=== PATIENT | female | born 1950 | race Asian ===

== ENCOUNTER → 2017-11-13 07:59 | Outpatient (CLI) | payer MEDICARE, OTHER, SELFPAY ==
--- NOTE | 2017-11-13 | DI.US.S_ITS ---
PROCEDURE: US PELVIC COMPLETE INDICATIONS: PAIN TECHNIQUE: Real-time scanning was performed of the pelvic organs, with image documentation. Additional endovaginal scanning was necessary due to incomplete visualization of the adnexal and endometrial structures by transabdominal scanning. COMPARISON: [facility], US, US ABDOMEN COMPLETE, 11/13/2017, 8:05. FINDINGS: Transabdominal scanning: No pathologic free abdominal or pelvic fluid. On the accompanying abdominal ultrasound, the kidneys demonstrate a normal appearance. Endovaginal scanning: Uterus: Absent. Ovaries: Neither ovary can be seen. IMPRESSION: Status post hysterectomy. Neither ovary is seen on this study. Dictated by: Parveen Fontaine M.D. on 11/13/2017 at 9:39 Approved by: Parveen Fontaine M.D. on 11/13/2017 at 9:40
--- NOTE | 2017-11-13 | DI.US.S_ITS ---
PROCEDURE: US ABDOMEN COMPLETE INDICATIONS: ABDOMINAL PAIN TECHNIQUE: Real-time scanning was performed of the abdominal and retroperitoneal organs, with image documentation. COMPARISON: [facility], US, US PELVIC COMPLETE, 11/13/2017, 8:18. FINDINGS: Liver: The liver demonstrates normal size. The liver demonstrates generalized mildly increased echogenicity. This decreases ultrasound sensitivity for detection of hepatic masses. Gallbladder: No findings of gallstones or sludge are seen. The gallbladder wall is not thickened, measuring 3 mm or less. No specific pericholecystic fluid is seen. The sonographic Hunt sign is negative. Biliary ducts: Intrahepatic bile ducts are non-dilated. Extrahepatic bile duct caliber measures 6 mm. Normal is 6-7 mm or less in diameter, or 10 mm or less post-cholecystectomy. Pancreas: Visualized portions of the pancreas are sonographically normal. Spleen: Spleen is normal in size and homogeneous in echotexture. Kidneys: Kidneys are normal in size and echotexture. Right kidney measures 9.9 cm long; left kidney measures 9.4 cm long. No hydronephrosis or nephrolithiasis. No solid masses. The renal cortex measures within normal limits for thickness. Aorta: Visualized aorta is normal in caliber at less than 3 cm. Iliacs: Proximal common iliac arteries are normal in caliber at less than 2.5 cm. IVC: Intrahepatic inferior vena cava is patent. Miscellaneous: No free abdominal fluid. IMPRESSION: The gallbladder demonstrates a normal sonographic appearance. No biliary dilatation is seen. The liver demonstrates increased echogenicity. This finding is nonspecific, yet it is most commonly attributed to fatty infiltration. Dictated by: Parveen Fontaine M.D. on 11/13/2017 at 9:38 Approved by: Parveen Fontaine M.D. on 11/13/2017 at 9:39
== END ==
PROVIDERS: Family Provider Family Medicine; PCP Family Medicine; Visit Provider Family Medicine
DX: R10.9 Unspecified abdominal pain (principal); R10.2 Pelvic and perineal pain
CPT/HCPCS: 76700; 76830; 76856

== ENCOUNTER → 2017-11-21 11:20 | Outpatient (CLI) | payer MEDICARE, OTHER, SELFPAY ==
--- NOTE | 2017-11-21 | DI.CT.S_ITS ---
PROCEDURE: CT ABDOMEN PELVIS W CON INDICATIONS: DIFFUSE ABDOMINAL PAIN TECHNIQUE: After the administration of oral and intravenous contrast, 5 mm thick sections acquired from the diaphragms to the symphysis. 5 mm thick coronal and sagittal reformats were performed. For radiation dose reduction, the following was used: automated exposure control, adjustment of mA and/or kV according to patient size. COMPARISON: [facility], , CT ABDOMEN W/WO CONTRAST, 08/12/2003, 7:59. FINDINGS: Image quality: Excellent. ABDOMEN: Lung bases: Lung bases are clear. Heart size is normal. Solid organs: Liver is enlarged, and demonstrates normal enhancement. Diffusely decreased hepatic density is present. Gallbladder is within normal limits. Biliary system is non-dilated. Pancreas enhances normally. Spleen is normal in size and enhancement. No adrenal nodules. Kidneys are normal in size and enhancement, without hydronephrosis. Peritoneum and bowel: Stomach, small bowel, and colon loops are normal in caliber and wall thickness. No free fluid or air. Appendix not seen. No evidence of appendicitis. Nodes and vessels: No retroperitoneal or mesenteric adenopathy. Aorta and inferior vena cava are normal in caliber. Miscellaneous: No ventral hernias. PELVIS: Genitourinary: Bladder wall thickness is normal. Miscellaneous: No inguinal hernias or adenopathy. Bones: No suspicious bony lesions. No vertebral body compression fractures. IMPRESSION: 1. No acute process. 2. Hepatic steatosis. 3. Appendix not seen. No evidence of appendicitis. Dictated by: Belinda Tam M.D. on 11/21/2017 at 13:18 Approved by: Belinda Tam M.D. on 11/21/2017 at 13:20
== END ==
PROVIDERS: PCP Family Medicine; Visit Provider Family Medicine
DX: R10.84 Generalized abdominal pain (principal); K76.0 Fatty (change of) liver, not elsewhere classified
CPT/HCPCS: 74177

== ENCOUNTER → 2017-11-27 11:37 | Outpatient (CLI) | payer MEDICARE, OTHER, SELFPAY ==
--- NOTE | 2017-11-27 | DI.RAD.S_ITS ---
PROCEDURE: XR FOOT RT MIN 3V INDICATIONS: RIGHT FOREFOOT TRAUMA AND PAIN TECHNIQUE: AP, lateral, and oblique views of the foot were acquired. COMPARISON: [facility], , FOOT 3V RIGHT, 11/22/2015, 14:51. FINDINGS: Bones: There is increased diaphyseal sclerosis of these can through fifth metatarsals with areas of transverse sclerosis of the mid-diaphyses. Soft tissues: No tibiotalar joint effusion. Achilles tendon appears normal. IMPRESSION: Increased diaphyseal sclerosis of the right second through fifth metatarsals, which may represent developing stress injuries/fracture. Dictated by: Familia Desai M.D. on 11/27/2017 at 12:26 Approved by: Familia Desai M.D. on 11/27/2017 at 12:29
== END ==
PROVIDERS: PCP Family Medicine; Visit Provider Family Medicine
DX: M79.671 Pain in right foot (principal)
CPT/HCPCS: 73630

== ENCOUNTER → 2018-04-01 12:07 | Outpatient (CLI) | payer MEDICARE, OTHER, SELFPAY ==
--- NOTE | 2018-04-01 | DI.RAD.S_ITS ---
PROCEDURE: XR CHEST 2V INDICATIONS: COUGH/FATIGUE TECHNIQUE: 2 views of the chest were acquired. COMPARISON: None. FINDINGS: Surgical changes and devices: None. Lungs and pleura: No pleural effusions or pneumothorax. Lungs are clear. Mediastinum: Mediastinal contours are normal. Heart size is normal. Bones and chest wall: No suspicious bony abnormalities. Soft tissues appear unremarkable. IMPRESSION: Normal for age, source of current symptoms is not seen. Dictated by: Eliseo Reza M.D. on 04/01/2018 at 13:24 Approved by: Eliseo Reza M.D. on 04/01/2018 at 13:25
== END ==
PROVIDERS: PCP Family Medicine; Visit Provider Nurse Practitioner Family
DX: R05 Cough (principal); R53.83 Other fatigue
CPT/HCPCS: 71046

== ENCOUNTER → 2019-05-02 10:44 | Outpatient (CLI) | payer MEDICARE, OTHER, SELFPAY ==
[2019-05-02 12:36] LABS: TSH w/ Reflex to FT4 3.08 uIU/mL (0.47-4.68)
== END ==
PROVIDERS: PCP Student in an Organized Health Care Education/Training Program; Visit Provider Student in an Organized Health Care Education/Training Program
DX: E03.9 Hypothyroidism, unspecified (principal)
CPT/HCPCS: 36415; 84443

== ENCOUNTER 2019-05-29 13:45 | Emergency (ER) | payer MEDICARE, OTHER, SELFPAY ==
[2019-05-29 13:55] VITALS: BP 134/89; PULSE 94; RESP 16; TEMP 35.8; O2SAT 99; BMI 28.9
--- NOTE | 2019-05-29 16:04 | ED_ITS ---
HPI - Ear Problem <CHUY Pennington - Last Filed: 05/29/19 21:44> General Chief complaint: Ear Stated complaint: terrible pain in her left side of head x2 days Time Seen by Provider: 05/29/19 15:21 Source: patient Mode of arrival: Ambulatory History of Present Illness HPI Narrative: 68-year-old female presents emergency department complaining of left ear pain for the past 2 days. She states it is a 7/10 dull aching pain. She denies any recent illness, recent flights, or trauma to the ear. She states she thinks it may be due to her throat as she does state it was a bit sore today. She has not had her ears irrigated in the past. Patient denies any recent swimming. She denies fevers, chills, nausea, vomiting, diarrhea, chest pain, shortness of breath, cough, nasal congestion, other concerns. Related Data Home Medications Medication Instructions Recorded Confirmed Hormonal Patch TRANSDERMAL 02/24/19 esomeprazole magnesium 20 mg 20 mg PO DAILY 02/24/19 02/24/19 capsule,delayed release levothyroxine PO 02/24/19 02/24/19 citalopram 20 mg PO DAILY 05/29/19 05/29/19 Previous Rx's Medication Instructions Recorded oxycodone-acetaminophen 5 mg-325 1 tab PO Q4-6H PRN #30 tab 02/24/19 mg tablet fluticasone propionate [Flonase 1 spray NASAL BID 14 Days #15.8 ml 05/29/19 Allergy Relief] ofloxacin 10 drop EAR-LEFT DAILY 7 Days #5 ml 05/29/19 Allergies Allergy/AdvReac Type Severity Reaction Status Date / Time No Known Drug Allergies Allergy Verified 05/29/19 13:55 Review of Systems <CHUY Pennington - Last Filed: 05/29/19 21:44> Review of Systems Narrative: REVIEW OF SYSTEMS: GENERAL: Denies fever or chills. HENT: No head trauma. Complains of left ear pain, see HPI. EYES: Denies eye irritation or vision changes. NECK/LYMPHATIC: No lymphadenopathy. CARDIOVASCULAR: No chest pain. RESPIRATORY: No shortness of breath. INTEGUMENTARY: No rash. NEURO: No confusion. Patient History <CHUY Pennington - Last Filed: 05/29/19 21:44> Medical History No significant medical problems (Acute) Social History Smoking Status: Never smoker Smoking Status: Never smoker Exam <CHUY Pennington - Last Filed: 05/29/19 21:44> Initial Vital Signs Initial Vital Signs: Vital Signs Temperature 96.4 F L 05/29/19 13:55 Pulse Rate 94 H 05/29/19 13:55 Respiratory Rate 16 05/29/19 13:55 Blood Pressure 134/89 05/29/19 13:55 Pulse Oximetry 99 05/29/19 13:55 PHYSICAL EXAMINATION: GENERAL: Alert, and cooperative. Answers questions promptly and appropriately. Vital signs noted. HENT: Normocephalic, atraumatic. Hearing intact. Oral mucosa is pink and moist. Face features symmetrical. Right ear with cerumen impaction. Left ear with cerumen impaction, TM not visible until after irrigation, TM intact with crisp light reflex and clear effusion noted, surrounding ear canal with erythema. EYES: Conjunctiva pink, sclera white, no periorbital swelling. No discharge. CARDIOVASCULAR: Regular rate. RESPIRATORY: Normal respiratory rate, trachea midline, airway patent. No stridor, nasal flaring or accessory muscle use. . MUSCULOSKELETAL: Normal gait and coordination. Equal tone and mass bilaterally. SKIN: Warm, dry, soft, appropriate color for ethnicity. NEURO: Alert and Oriented X 3. Good coordination. PSYCH: Appropriate affect and mood. <Anshul Lutz MD - Last Filed: 06/02/19 08:07> Initial Vital Signs Initial Vital Signs: Vital Signs Temperature 96.4 F L 05/29/19 13:55 Pulse Rate 94 H 05/29/19 13:55 Respiratory Rate 16 05/29/19 13:55 Blood Pressure 134/89 05/29/19 13:55 Pulse Oximetry 99 05/29/19 13:55 Course <CHUY Pennington - Last Filed: 05/29/19 21:44> Course Course Narrative: Patient's ear was irrigated, TM was visualized. Vital Signs Vital signs: Vital Signs - 8 hr 05/29/19 13:55 05/29/19 16:50 Temperature 96.4 F L Pulse Rate 94 H 79 Respiratory Rate 16 Blood Pressure 134/89 127/75 Pulse Oximetry 99 100 <Anshul Lutz MD - Last Filed: 06/02/19 08:07> Vital Signs Vital signs: Vital Signs - 8 hr 05/29/19 13:55 05/29/19 16:50 Temperature 96.4 F L Pulse Rate 94 H 79 Respiratory Rate 16 Blood Pressure 134/89 127/75 Pulse Oximetry 99 100 Medical Decision Making <CHUY Pennington - Last Filed: 05/29/19 21:44> Medical Records Medical records reviewed: Yes I reviewed the patient's medical records. Lab Data Lab results reviewed: Yes I reviewed the patient's lab results. MDM Narrative Medical decision making narrative: 60-year-old female presents emergency department complaining of left ear pain. After irrigation and removal of cerumen impaction, there was fluid visualized behind TM and surrounding ear canal was erythematous. I suspect otitis externa and otitis effusion. Less likely acute otitis media with bacterial infection due to lack of opacity, bulging, or erythema of tympanic membrane. Patient was encouraged to use Flonase intranasally morning and night for the next 2 weeks to help with otitis effusion. She was given ofloxacin drops for otitis externa. Patient was encouraged to follow up with her primary care provider in 1-2 weeks for further evaluation if symptoms continue. Patient agreed with plan of care verbalized understanding. Less concerns for tumor or cranial bleed due to normal neurological examination, and otitis effusion and erythematous ear canal noted on examination. Discharge Plan Departure Patient Disposition: Home Clinical Impression: Acute otitis media with effusion Otitis externa Qualifiers: Otitis externa type: unspecified type Chronicity: acute Laterality: left Q ualified Code(s): H60.502 - Unspecified acute noninfective otitis externa, left ear Cerumen impaction Qualifiers: Laterality: left Qualified Code(s): H61.22 - Impacted cerumen, left ear Discharge Date/Time: 05/29/19 16:51 Instructions: Cerumen Impaction, DI for Otitis Externa Activity Restrictions/Additional Instructions: Thank you for entrusting me with your care today. As discussed, your ear pain is most likely caused by non infectious fluid behind your ear as well as an external ear infection. You have been given ear drops and a nasal spray, [facility] [place]. Please use these as directed. Follow up with your primary care provider in 1-2 weeks for further evaluation if symptoms continue. Return to the emergency department for new or worsening symptoms such as vision changes, difficulty speaking, syncope, chest pain, shortness of breath, high fevers, or other concerns. Prescriptions: New ofloxacin 0.3 % drops 10 drop EAR-LEFT DAILY 7 Days Qty: 5 RF: 0 fluticasone propionate [Flonase Allergy Relief] 50 mcg/actuation spray,suspension 1 spray NASAL BID 14 Days Qty: 15.8 RF: 0 No Action esomeprazole magnesium [Nexium 24HR] 20 mg capsule,delayed release(DR/EC) 20 mg PO DAILY RF: 0 levothyroxine PO RF: 0 Hormonal Patch transdermal RF: 0 oxycodone-acetaminophen [Percocet] 5-325 mg tablet 1 tab PO Q4-6H PRN (Reason: pain) Qty: 30 RF: 0 citalopram 20 mg tablet 20 mg PO DAILY RF: 0 Referrals: Vita Porras MD [Primary Care Provider] -
[2019-05-29 16:50] VITALS: BP 127/75; PULSE 79; O2SAT 100
== END 2019-05-29 16:51 | disposition home or self-care (01) ==
PROVIDERS: Emergency Provider Nurse Practitioner; PCP Student in an Organized Health Care Education/Training Program
DX: H65.192 Other acute nonsuppurative otitis media, left ear (principal); H60.502 Unspecified acute noninfective otitis externa, left ear; H61.22 Impacted cerumen, left ear
CPT/HCPCS: 69209; 99283

== ENCOUNTER → 2019-07-16 09:24 | Outpatient (CLI) | payer MEDICARE, OTHER, SELFPAY ==
[2019-07-16 10:06] LABS: Add Manual Diff / Slide Review NO; Basophils Absolute Auto 0 /uL (0-100); Basophils Percent Auto 0.7 % (0-2); Eosinophils Absolute Auto 200 /uL (0-450); Eosinophils Percent Auto 3.4 % (2-4); Hematocrit 39.2 % (36-46); Lymphocytes Absolute Auto 2100 /uL (1100-4500); Lymphocytes Percent Auto 32.8 % (25-40); Mean Corpuscular HGB Conc 33.3 % (30-36); Mean Corpuscular Hemoglobin 27.6 PG (26-34); Mean Corpuscular Volume 83.1 fL (80-100); Monocytes Absolute Auto 300 /uL (0-900); Neutrophils Absolute Auto 3700 /uL (1500-7000); Neutrophils Percent Auto 58.1 % (50-75); Platelet Count 227 X10^3/uL (150-400); Red Blood Cell Count 4.71 X10^6/uL (4.0-5.2); Red Cell Distribution Width 15.3 % (11.6-14.8); White Blood Cell Count 6.4 X10^3/uL (4.5-11.0)
[2019-07-16 10:54] LABS: Alanine Aminotransferase 21 IU/L (<35); Albumin 4.1 g/dL (3.5-5.0); Albumin Globulin Ratio 1.3 (1.0-2.8); Alkaline Phosphatase 90 U/L (38-126); Aspartate Aminotransferase 21 IU/L (14-36); BUN Creatinine Ratio 16.2 (6-22); Bilirubin Total 0.3 mg/dL (0.2-1.3); Blood Urea Nitrogen 11 mg/dL (7-17); Calcium 9.6 mg/dL (8.4-10.2); Carbon Dioxide 25 mmol/L (22-32); Chloride 105 mmol/L (98-107); Cholesterol 234 mg/dL (140-199); Estimated Glomerular Filt Rate > 60.0 mL/min (>60); Globulin 3.2 g/dL (1.7-4.1); Glucose 158 mg/dL (80-110); HDL Cholesterol 45 mg/dL (40-60); HEMOLYSIS < 15 (0-50); LDL Cholesterol Calculated 145 mg/dL (<100); Potassium 4.4 mmol/L (3.4-5.1); Sodium 138 mmol/L (137-145); Total Protein 7.3 g/dL (6.3-8.2); Triglycerides 222 mg/dL (35-150)
[2019-07-16 11:13] LABS: Free T4, Direct Thyroxine 1.38 ng/dL (0.78-2.19)
[2019-07-16 11:27] LABS: Thyroid Stimulating Hormone 3.52 uIU/mL (0.47-4.68)
== END ==
PROVIDERS: PCP Internal Medicine; Referring Provider Internal Medicine; Visit Provider Internal Medicine
DX: E03.9 Hypothyroidism, unspecified (principal); E78.2 Mixed hyperlipidemia; F41.9 Anxiety disorder, unspecified
CPT/HCPCS: 36415; 80053; 80061; 84439; 84443; 85025

== ENCOUNTER 2020-05-05 09:52 | Emergency (ER) | payer MEDICARE, OTHER, SELFPAY ==
[2020-05-05 10:06] VITALS: BP 146/88; PULSE 85; RESP 12; TEMP 36.9; O2SAT 98; BMI 28.7
--- NOTE | 2020-05-05 10:35 | DI.RAD.S_ITS ---
PROCEDURE: XR KNEE LT 3V INDICATIONS: pain sp glf TECHNIQUE: 3 views of the knee were acquired. COMPARISON: None. FINDINGS: Bones: No fractures or dislocations. There is mild osteophytosis. No suspicious bony lesions. Soft tissues: There is a small joint effusion. No suspicious soft tissue calcifications. IMPRESSION: 1. No fracture or dislocation. Dictated by: Gilbert Marie M.D. on 05/05/2020 at 11:35 Approved by: Gilbert Marie M.D. on 05/05/2020 at 11:38
--- NOTE | 2020-05-05 10:35 | DI.RAD.S_ITS ---
PROCEDURE: XR SHOULDER LT MIN 2V INDICATIONS: pain sp glf TECHNIQUE: 3 views of the shoulder were acquired. COMPARISON: [facility] [place], [place], XR SHOULDER MIN 2VW RT, 07/24/2016, 12:12. FINDINGS: Bones: No fractures. There is mild superior subluxation of the distal clavicle at the left AC joint. There is moderate glenohumeral joint degeneration secondary to osteoarthritis. No suspicious bony lesions. Visualized ribs appear intact. Soft tissues: No suspicious soft tissue calcifications. IMPRESSION: 1. Grade 2 AC sprain. 2. Moderate osteoarthritis. Dictated by: Leeanne Villalta M.D. on 05/05/2020 at 11:33 Approved by: Leeanne Villalta M.D. on 05/05/2020 at 11:35
--- NOTE | 2020-05-05 10:35 | DI.CT.S_ITS ---
PROCEDURE: CT CERVICAL SPINE WO CON INDICATIONS: glf hit face, nose lac TECHNIQUE: Noncontrast 3 mm thick sections acquired from the skull base to the T4 level. Sagittal and coronal reformats were then constructed. For radiation dose reduction, the following was used: automated exposure control, adjustment of mA and/or kV according to patient size. COMPARISON: [facility] [place], [place], SPINE CERVICAL COMP W/ FL/EX, 07/24/2016, 12:01. FINDINGS: Image quality: Excellent. Bones: No fractures or dislocations. There is degenerative disc disease, [id number] at C4-C5, C5-C6 and C6-C7, causing [id number] central canal stenosis. [id number] bilateral facet arthropathy scattered in cervical spine. Visualized superior ribs are intact. Soft tissues: Prevertebral soft tissues are normal in thickness. No paravertebral hematomas. No apical pneumothoraces. IMPRESSION: 1. No acute cervical spine fracture. 2. Degenerative changes as described. Dictated by: Leeanne Villalta M.D. on 05/05/2020 at 11:13 Approved by: Leeanne Villalta M.D. on 05/05/2020 at 11:17
--- NOTE | 2020-05-05 10:35 | DI.CT.S_ITS ---
PROCEDURE: CT HEAD/BRAIN WO CON INDICATIONS: glf, headache dizzy TECHNIQUE: Noncontrast 4.5 mm thick angled axial sections acquired from the foramen magnum to the vertex, with coronal and sagittal reformats. For radiation dose reduction, the following was used: automated exposure control, adjustment of mA and/or kV according to patient size. COMPARISON: [facility], CT, HEAD WITHOUT CONTRAST, 10/29/2012, 9:54. [facility], CT, CT FACIAL BONES WO CON, 05/05/2020, 10:48. [facility], CT, HEAD WITHOUT CONTRAST, 10/13/2014, 10:29. FINDINGS: Image quality: Excellent. CSF spaces: Basal cisterns are patent. No extra-axial fluid collections. Ventricles are normal in size and shape. Brain: No intracranial hemorrhage, mass, or mass effect. Parkinson-white matter interface appears preserved. Skull and face: Calvarium appears intact. The visualized facial bones demonstrate mildly depressed fractures of the nasal bones. Sinuses: Visualized sinuses and mastoids are clear. IMPRESSION: 1. No acute intracranial abnormality. 2. Mildly displaced nasal bone fractures partially visualized. Recommend correlation with concurrent CT of the facial bones. Dictated by: Gilbert Marie M.D. on 05/05/2020 at 11:07 Approved by: Gilbert Marie M.D. on 05/05/2020 at 11:16
--- NOTE | 2020-05-05 10:35 | DI.CT.S_ITS ---
PROCEDURE: CT FACIAL BONES WO CON INDICATIONS: Pain status post ground level fall. TECHNIQUE: Noncontrast 2.5 mm thick axial images acquired from the mandible through the frontal sinuses, with coronal and sagittal reformatting. For radiation dose reduction, the following was used: automated exposure control, adjustment of mA and/or kV according to patient size. COMPARISON: None. FINDINGS: Image quality: Excellent. Bones and teeth: There are mildly displaced fractures of the nasal bones bilaterally with minimal depression anteriorly. There is associated overlying soft tissue swelling. Orbital santamaria are intact. Sinus santamaria show no fracture or deformity. Visualized portions of the mandible demonstrate no fractures or subluxation. Zygomatic arches are intact. Pterygoid plates are intact. Visualized portions of the skull base and auditory canals are intact. Sinuses: Paranasal sinuses are aerated, without fluid levels. There is a sinus retention cyst or mucosal polyp in the inferior left maxillary sinus. Mastoid air cells are aerated. Soft tissues: There is mild soft tissue swelling overlying the nasal bones. There is also mild medial periorbital soft tissue swelling bilaterally. The globes are intact. No intraorbital fluid collections. Vascular: Visualized vascular structures appear normal in the absence of contrast. Bony vascular foramina and canals are intact. IMPRESSION: 1. Mildly displaced fractures of the nasal bones with minimal depression anteriorly. Dictated by: Gilbert Marie M.D. on 05/05/2020 at 11:16 Approved by: Gilbert Marie M.D. on 05/05/2020 at 11:28
--- NOTE | 2020-05-05 10:40 | ED_ITS ---
HPI - Fall <JOANNA Patterson-BC - Last Filed: 05/05/20 13:49> General Chief Complaint: Fall Stated Complaint: glf 2xdays ago Time Seen by Provider: 05/05/20 10:15 Source: patient Mode of arrival: Ambulatory Limitations: no limitations History of Present Illness HPI Narrative: The patient is a 69-year-old female former smoker with history of hypothyroidism and sciatica who presents with a chief complaint of pain after a fall. She fell off of a chair while reaching up to get coffee 2 days ago. She states that she fell, landed on her left knee, shoulder, and then hit her head. Since then, she complains of dizziness, lightheadedness, and headache. She states that she is taking Aleve and ibuprofen for pain. She states that her neck hurts excruciatingly. Denies any new numbness or tingling or incontinence. She has not followed up with primary care provider. She does not take any blood thinners. She states that she hit her face on the chair, had a very bloody nose has a laceration to her nose. She also notes that she has a black eye on her right side. Given that the patient is over 65 years old and presents with suspected injury after a fall, modified trauma activated upon arrival. Related Data Home Medications Medication Instructions Recorded Confirmed esomeprazole magnesium 20 mg 20 mg PO DAILY 02/24/19 02/25/20 capsule,delayed release levothyroxine 50 mcg tablet 50 mcg PO DAILY tab 07/10/19 02/25/20 Previous Rx's Medication Instructions Recorded citalopram 20 mg tablet 40 mg PO DAILY #60 tab 07/10/19 cephalexin 500 mg PO TID #30 cap 05/05/20 cyclobenzaprine 10 mg PO TID PRN #10 tab 05/05/20 hydrocodone-acetaminophen [[place]] 1 tab PO Q4-6H PRN #7 tab 05/05/20 Allergies Allergy/AdvReac Type Severity Reaction Status Date / Time No Known Drug Allergies Allergy Verified 05/05/20 10:10 Review of Systems <MARCOS PattersonBC - Last Filed: 05/05/20 13:49> Review of Systems Narrative: GENERAL: Denies chills, fatigue, malaise, fever, sweats. HEENT: See HPI RESPIRATORY: Denies dyspnea, cough, wheezing, hemoptysis, sputum. CARDIOVASCULAR: Denies chest pain, palpitations, orthopnea, edema, GASTROINTESTINAL: Denies nausea, vomiting, abdominal pain, diarrhea, constipation, melena. : Denies dysuria, frequency, incontinence, hematuria, urinary retention. MUSCULOSKELETAL: See HPI SKIN: Denies rash, skin lesions, or other NEUROLOGIC: See HPI PSYCHIATRIC: No concerning psychosocial issues. 12 point review of systems is negative except for those stated above Patient History <STACEY Patterson - Last Filed: 05/05/20 13:49> Medical History (Updated 05/05/20 @ 12:48 by STACEY Patterson) Acquired hypothyroidism Anxiety Deviated septum Hyperglycemia (~07/2019) Irritable bowel syndrome Mixed hyperlipidemia Surgical History S/P appendectomy S/P hysterectomy S/P sinus surgery Social History Smoking Status: Former smoker Smoking Status: Former smoker alcohol intake frequency: a few times a month Alcohol type: wine Substance Use Type: does not use Exam <STACEY Patterson - Last Filed: 05/05/20 13:49> Narrative Exam Narrative: GENERAL: This is a well-nourished, well-developed patient, no acute distress HEAD: Atraumatic. Normocephalic. No temporal or scalp tenderness. EYES: Pupils equal round and reactive. Extraocular motions intact. No scleral icterus. No injection or drainage. Skin exam as noted ENT: Nose without bleeding, purulent drainage or septal hematoma. Throat without erythema, tonsillar hypertrophy or exudate. Uvula midline. Airway patent. NECK: Trachea midline. No JVD or lymphadenopathy. Supple, nontender, no meni ngeal signs. CARDIOVASCULAR: Regular rate and rhythm without murmurs, gallops, or rubs. RESPIRATORY: Clear to auscultation. Breath sounds equal bilaterally. No wheezes, rales, or rhonchi. GASTROINTESTINAL: Abdomen soft, non-tender, nondistended. No hepato- splenomegaly, or palpable masses. No guarding. EXTREMITIES: No clubbing, cyanosis, or edema. No joint tenderness, effusion, or edema noted. BACK: Midline C-spine pain to palpation. T and L-spine are without deformity or crepitance. No palpable step-offs or deformities NEURO: AOx3. SKIN: 1 cm irregular healing laceration noted on nasal bridge. Periorbital ecchymosis noted on right side. Initial Vital Signs Initial Vital Signs: Vital Signs Temperature 98.5 F 05/05/20 10:06 Pulse Rate 85 05/05/20 10:06 Respiratory Rate 12 05/05/20 10:06 Blood Pressure 146/88 H 05/05/20 10:06 Pulse Oximetry 98 05/05/20 10:06 <Radha Ennis DO - Last Filed: 05/05/20 18:12> Initial Vital Signs Initial Vital Signs: Vital Signs Temperature 98.5 F 05/05/20 10:06 Pulse Rate 85 05/05/20 10:06 Respiratory Rate 12 05/05/20 10:06 Blood Pressure 146/88 H 05/05/20 10:06 Pulse Oximetry 98 05/05/20 10:06 Procedures <STACEY Patterson - Last Filed: 05/05/20 13:49> Orthopedic Splinting/Casting Injury #1: Side: left Upper Extremity Injury Location: shoulder Upper Extremity Immobilizer: sling/shoulder immobilizer Post splinting neuro exam: intact Post splinting vascular exam: intact Placed by: Nursing Scores <STACEY Patterson - Last Filed: 05/05/20 13:49> [place] CT Head Rule Age <16 years old: No Patient on blood thinners: No Seizure after injury: No Exclusion: Patient NOT Excluded, Proceed to next steps GCS < 15 at 2 hr post trauma: No Suspected open or depressed skull fracture: No Any sign of basilar skull fracture (hemotympanum, raccoon eyes, Estrada's sign, CSF sarthak-/rhinorrhea): Yes Two or more episodes of vomiting: No Age greater or equal to 65 years: Yes Retrograde amnesia to the event greater or equal to 30 min: No Dangerous Mechanism (pedestrian vs. mv, occupant ejected from mv, fall from >3 ft or > 5 stairs): No Recommendation: Consider CT. The [place] Head CT Rule cannot rule out need for Imaging. GCS Tre coma scale eye opening: Spontaneous Tre coma scale verbal response: Orientated [place] coma scale motor response: Obey commands [place] coma scale total score: 15 Nexus Score for C-Spine Focal Neurologic deficit present: No Midline spinal tenderness present: Yes Altered level of conciousness present: No Intoxication present: No Distracting Injury Present: No Nexus Criteria for C-spine: 1 Course <STACEY Patterson - Last Filed: 05/05/20 13:49> Orders Ordered: ED Orders 05/05/20 10:35 CT cervical spine wo con Stat CT facial bones wo con Stat CT head/brain wo con Stat XR knee LT 3V Stat XR shoulder LT min 2V Stat Discontinued Medications Diphtheria/Tetanus/Acell Pertussis (Tet,Diph,Pertuss(Acell),Vac/Pf 0.5 Ml Syringe) 0.5 ml IM .ONCE ONE Stop: 05/05/20 10:38 Last Admin: 05/05/20 11:08 Dose: 0.5 ml Documented by: LINDA Vital Signs Vital signs: Vital Signs - 8 hr 05/05/20 12:58 Pulse Rate 73 Respiratory Rate 16 Blood Pressure 151/72 H Pulse Oximetry 99 <Radha Ennis DO - Last Filed: 05/05/20 18:12> Orders Ordered: ED Orders 05/05/20 10:35 CT cervical spine wo con Stat CT facial bones wo con Stat CT head/brain wo con Stat XR knee LT 3V Stat XR shoulder LT min 2V Stat Discontinued Medications Diphtheria/Tetanus/Acell Pertussis (Tet,Diph,Pertuss(Acell),Vac/Pf 0.5 Ml Syringe) 0.5 ml IM .ONCE ONE Stop: 05/05/20 10:38 Last Admin: 05/05/20 11:08 Dose: 0.5 ml Documented by: LINDA Vital Signs Vital signs: Vital Signs - 8 hr 05/05/20 12:58 Pulse Rate 73 Respiratory Rate 16 Blood Pressure 151/72 H Pulse Oximetry 99 MDM - Fall <STACEY Patterson - Last Filed: 05/05/20 13:49> Imaging Data Extremity x-ray #1: Radiologist's Impression: [address] [place] [id number] ReportSigned Patient: Carolina Jung GMR#: [id number]: 1950cct:[id number]/Sex: 69 / FDate of Service: 05/05/20Loc: EDAccession Number: [id number] Procedure: XR shoulder LT min 2V Ordering Provider: Aaliyah De La Rosa-DARRICK PROCEDURE: XR SHOULDER LT MIN 2V INDICATIONS: pain sp glf TECHNIQUE: 3 views of the shoulder were acquired. COMPARISON: [facility], CR, XR SHOULDER MIN 2VW RT, 07/24/2016, 12:12. FINDINGS: Bones: No fractures. There is mild superior subluxation of the distal clavicle at the left AC joint. There is moderate glenohumeral joint degeneration secondary to osteoarthritis. No suspicious bony lesions. Visualized ribs appear intact. Soft tissues: No suspicious soft tissue calcifications. IMPRESSION: 1. Grade 2 AC sprain. 2. Moderate osteoarthritis. Dictated by: Leeanne Villalta M.D. on 05/05/2020 at 11:33 Approved by: Leeanne Villalta M.D. on 05/05/2020 at 11:35 Extremity x-ray #2: Radiologist's Impression: [address] [place] [id number] ReportSigned Patient: Carolina Jung GMR#: [id number]: 1950t:[id number]/Sex: 69 / FDate of Service: 05/05/20Loc: EDAccession Number: [id number] Procedure: XR knee LT 3V Ordering Provider: Aaliyah De La Rosa PROCEDURE: XR KNEE LT 3V INDICATIONS: pain sp glf TECHNIQUE: 3 views of the knee were acquired. COMPARISON: None. FINDINGS: Bones: No fractures or dislocations. There is mild osteophytosis. No suspicious bony lesions. Soft tissues: There is a small joint effusion. No suspicious soft tissue calcifications. IMPRESSION: 1. No fracture or dislocation. Dictated by: Gilbert Marie M.D. on 05/05/2020 at 11:35 Approved by: Gilbert Marie M.D. on 05/05/2020 at 11:38 CT scan - head: Radiologist's Impression: [address] [place] [id number] ReportSigned Patient: Carolina Jung GMR#: [id number]: [facility]:[id number]/Sex: 69 / FDate of Service: 05/05/20Loc: EDAccession Number: [id number] Procedure: XR knee LT 3V Ordering Provider: Aaliyah De La Rosa-DARRICK PROCEDURE: XR KNEE LT 3V INDICATIONS: pain sp glf TECHNIQUE: 3 views of the knee were acquired. COMPARISON: None. FINDINGS: Bones: No fractures or dislocations. There is mild osteophytosis. No suspicious bony lesions. Soft tissues: There is a small joint effusion. No suspicious soft tissue calcifications. IMPRESSION: 1. No fracture or dislocation. Dictated by: Gilbert Marie M.D. on 05/05/2020 at 11:35 Approved by: Gilbert Marie M.D. on 05/05/2020 at 11:38 CT - cervical spine: Radiologist's Impression: [address] [place] [id number] Scan ReportSigned Patient: Carolina Jung GMR#: [id number]: 1950t:[id number]/Sex: 69 / FDate of Service: 05/05/20Loc: EDAccession Number: [id number] Procedure: CT facial bones wo con Ordering Provider: Aaliyah De La Rosa PROCEDURE: CT CERVICAL SPINE WO CON INDICATIONS: glf hit face, nose lac TECHNIQUE: Noncontrast 3 mm thick sections acquired from the skull base to the T4 level. S agittal and coronal reformats were then constructed. For radiation dose reduction, the following was used: automated exposure control, adjustment of mA and/or kV according to patient size. COMPARISON: [facility], , SPINE CERVICAL COMP W/ FL/EX, 07/24/2016, 12:01. FINDINGS: Image quality: Excellent. Bones: No fractures or dislocations. There is degenerative disc disease, [id number]-[id number] at C4-C5, C5-C6 and C6-C7, causing ebhk-xi-lugjsssl central canal stenosis. Mbsh-bl-cqhqujgt bilateral facet arthropathy scattered in cervical spine. Visualized superior ribs are intact. Soft tissues: Prevertebral soft tissues are normal in thickness. No paravertebral hematomas. No apical pneumothoraces. IMPRESSION: 1. No acute cervical spine fracture. 2. Degenerative changes as described. Dictated by: Leeanne Villalta M.D. on 05/05/2020 at 11:13 Approved by: Leeanne Villalta M.D. on 05/05/2020 at 11:[address]: Radiologist's Impression: [address] [place] [id number] Scan ReportSigned Patient: Carolina Jung GMR#: [id number]: 1950cct:[id number]/Sex: 69 / FDate of Service: 05/05/20Loc: EDAccession Number: [id number] Procedure: CT cervical spine wo con Ordering Provider: Aaliyah De La Rosa PROCEDURE: CT FACIAL BONES WO CON INDICATIONS: Pain status post ground level fall. TECHNIQUE: Noncontrast 2.5 mm thick axial images acquired from the mandible through the frontal sinuses, with coronal and sagittal reformatting. For radiation dose reduction, the following was used: automated exposure control, adjustment of mA and/or kV according to patient size. COMPARISON: None. FINDINGS: Image quality: Excellent. Bones and teeth: There are mildly displaced fractures of the nasal bones bilaterally with minimal depression anteriorly. There is associated overlying soft tissue swelling. Orbital santamaria are intact. Sinus santamaria show no fracture or deformity. Visualized portions of the mandible demonstrate no fractures or subluxation. Zygomatic arches are intact. Pterygoid plates are intact. Visualized portions of the skull base and auditory canals are intact. Sinuses: Paranasal sinuses are aerated, without fluid levels. There is a sinus retention cyst or mucosal polyp in the inferior left maxillary sinus. Mastoid air cells are aerated. Soft tissues: There is mild soft tissue swelling overlying the nasal bones. There is also mild medial periorbital soft tissue swelling bilaterally. The globes are intact. No intraorbital fluid collections. Vascular: Visualized vascular structures appear normal in the absence of contrast. Bony vascular foramina and canals are intact. IMPRESSION: 1. Mildly displaced fractures of the nasal bones with minimal depression anteriorly. Dictated by: Gilbert Marie M.D. on 05/05/2020 at 11:16 Approved by: Gilbert Marie M.D. on 05/05/2020 at 11:28 [facility] Narrative Medical decision making narrative: The patient is a 68-year-old female who presents 2 days after a ground level fall with multiple complaints. Any x-ray is no acute findings, shoulder x-ray illustrate grade 2 AC separation, so patient was placed in sling. Given her age, complains of dizziness and lightheadedness, CT of head was taken, this came back negative. CT of her C- spine came back with no acute findings. CT of facial bones was concerning for nasal fracture. Given the patient's laceration overlying, tetanus updated she was placed on Keflex. Encouraged follow-up with primary care provider in the next few days, also gave contact information to ENT. The patient has to drive home, so we were unable to administer pain medications in the emergency department, though I did give her prescriptions there of. Patient has no questions or concerns upon discharge and states understanding of return precautions as well as follow-up care. Discharge Plan Departure Patient Disposition: Home Clinical Impression: Concussion without loss of consciousness Qualifiers: Encounter type: initial encounter Qualified Code(s): S06.0X0A - Concussion without loss of consciousness, initial encounter AC separation Qualifiers: Encounter type: initial encounter Laterality: left Qualified Code(s): S43.102A - Unspecified dislocation of left acromioclavicular joint, initial encounter Contusion of knee, left Qualifiers: Encounter type: initial encounter Qualified Code(s): S80.02XA - Contusion of left knee, initial encounter Fracture of nasal bone Qualifiers: Encounter type: initial encounter Fracture type: open Qualified Code(s): S02.2XXB - Fracture of nasal bones, initial encounter for open fracture Fall Qualifiers: Encounter type: initial encounter Qualified Code(s): W19.XXXA - Unspecified fall, initial encounter Laceration of face Qualifiers: Encounter type: initial encounter Qualified Code(s): S01.81XA - Laceration without foreign body of other part of head, initial encounter Instructions: How to Use a Sling, DI for Concussion, DI for Nose Fracture, How to Prevent Falls, AC Joint Separation, DI for Open Laceration Activity Restrictions/Additional Instructions: Thank you for trusting us with your care today. As discussed, you have a broken nose. Given the laceration overlying, we have placed you on antibiotics. I sent this prescription to [facility] Please take this with probiotic or yogurt to help reduce antibiotic related side effects. Please monitor for signs of infection such as extending redness etcetera I have also given you contact information to [facility] if Dr. Wooten would like you to follow-up with them. Your shoulder x-ray shows an AC separation. We have placed you in a sling. As I discussed, your knee x-ray shows no acute fracture. This does not rule out a soft tissue injury such as a ligament or tendon injury. It is important that you follow up with primary care provider, especially if worsening or no improvement. There can be fractures that did not show up on initial x-ray. Your neck and head CTs came back with no acute findings. However given her clinical symptoms, I believe you have a concussion. Please rest over the next few days. I sent 3 different prescriptions to [facility]. One antibiotic, two for pain. I have given you a prescription of a narcotic for pain. Be aware that this can be constipating and sedating. I encouraged taking with a stool softener, pushing fluids and fiber. Do not take and drive, operate heavy machinery, etc. Do not combine it with any other sedating substances such as alcohol. The combination of narcotics and alcohol and/or other sedatives can be lethal. Plea se be aware that we do not provide refills of controlled substances in the emergency department. Please follow up with her primary care provider. I have also given you prescription for a muscle relaxer. Please be aware that this can be sedating. Please come back to the emergency department for any acute concerns Prescriptions: New hydrocodone-acetaminophen [[place]] 5-325 mg tablet 1 tab PO Q4-6H PRN (Reason: pain) Qty: 7 RF: 0 cyclobenzaprine 10 mg tablet 10 mg PO TID PRN (Reason: muscle spasm) Qty: 10 RF: 0 cephalexin 500 mg capsule 500 mg PO TID Qty: 30 RF: 0 No Action esomeprazole magnesium [Nexium 24HR] 20 mg capsule,delayed release(DR/EC) 20 mg PO DAILY RF: 0 levothyroxine 50 mcg TABLET 50 mcg PO DAILY RF: 0 citalopram 20 mg tablet 40 mg PO DAILY Qty: 60 RF: 3 Referrals: [facility] [Provider Group] Anshul Wooten MD [Primary Care Provider] - <Radha Ennis DO - Last Filed: 05/05/20 18:12> Cosign ED Attending Cosignature Attestation: I was immediately available in the d epartment for consultation. Documentation has been reviewed. I agree with assessment and plan.
[2020-05-05] MEDS: TET,DIPH,PERTUSS(ACELL),VAC/PF 0.5 ML SYRINGE IM (11:08)
[2020-05-05 12:58] VITALS: BP 151/72; PULSE 73; RESP 16; O2SAT 99
== END 2020-05-05 13:02 | disposition home or self-care (01) ==
PROVIDERS: Emergency Provider Nurse Practitioner Family; PCP Internal Medicine
DX: S06.0X0A Concussion without loss of consciousness, initial encounter (principal); S43.102A Unspecified dislocation of left acromioclavicular joint, initial encounter; S80.02XA Contusion of left knee, initial encounter; S02.2XXB Fracture of nasal bones, initial encounter for open fracture; R42 Dizziness and giddiness; Z23 Encounter for immunization; R51.9 Headache, unspecified; W19.XXXA Unspecified fall, initial encounter; E03.9 Hypothyroidism, unspecified; E78.5 Hyperlipidemia, unspecified
CPT/HCPCS: 70450; 70486; 72125; 73030; 73562; 90471; 99284; 90715

== ENCOUNTER → 2020-10-27 14:52 | Outpatient (CLI) | payer MEDICARE, OTHER, SELFPAY ==
[2020-10-27 16:22] LABS: Alanine Aminotransferase 30 IU/L (<35); Albumin 3.9 g/dL (3.5-5.0); Albumin Globulin Ratio 1.2 (1.0-2.8); Alkaline Phosphatase 88 U/L (38-126); Aspartate Aminotransferase 32 IU/L (14-36); BUN Creatinine Ratio 19.1 (6-22); Bilirubin Total 0.3 mg/dL (0.2-1.3); Blood Urea Nitrogen 13 mg/dL (7-17); Calcium 9.3 mg/dL (8.4-10.2); Carbon Dioxide 27 mmol/L (22-32); Chloride 99 mmol/L (98-107); Estimated Glomerular Filt Rate > 60.0 mL/min (>60); Globulin 3.3 g/dL (1.7-4.1); Glucose 273 mg/dL (80-110); HEMOLYSIS < 15 (0-50); Sodium 134 mmol/L (137-145); Total Protein 7.2 g/dL (6.3-8.2)
[2020-10-27 17:28] LABS: Free T3, Triiodothyronine Free 2.99 pg/mL (2.77-5.27)
[2020-10-27 17:41] LABS: Thyroid Stimulating Hormone 2.26 uIU/mL (0.47-4.68)
== END ==
PROVIDERS: PCP Internal Medicine; Referring Provider Internal Medicine; Visit Provider Internal Medicine
DX: E03.9 Hypothyroidism, unspecified (principal)
CPT/HCPCS: 36415; 80053; 84439; 84443; 84481

== ENCOUNTER 2020-11-14 07:34 | Emergency (ER) | payer MEDICARE, OTHER, SELFPAY ==
[2020-11-14 07:47] VITALS: BP 125/61; PULSE 73; RESP 18; TEMP 37; O2SAT 96; BMI 29.7
--- NOTE | 2020-11-14 07:51 | ED.NECK ---
HPI - Neck Pain/Injury General Chief Complaint: Neck Pain/Injury Stated Complaint: pain in neck Time Seen by Provider: 11/14/20 07:51 History of Present Illness HPI Narrative: Patient is a 69-year-old female presenting with sharp shooting pain on her face and neck ongoing for at least 10 days. She actually has a history of shingles she said she had blisters there some point recently but they have gone. She had dental surgery at some point but pain started before that and has continued. She is obviously having sharp nerve pains that come quite frequently. They appear to be quite painful. No fever or chills. She no longer has a rash. She saw her primary care doctor she has been having some headaches he thought headaches were related to blood pressure says he start blood pressure medication. She has no numbness tingling or weakness. It hurts every time she moves her neck. She denies any injury. Related Data Home Medications Medication Instructions Recorded Confirmed esomeprazole magnesium 20 mg 20 mg PO DAILY 02/24/19 10/26/20 capsule,delayed release (Nexium 24HR) Previous Rx's Medication Instructions Recorded citalopram 20 mg tablet 40 mg PO DAILY #180 tab 05/31/20 levothyroxine 50 mcg tablet 50 mcg PO DAILY #90 tab 10/26/20 propranolol 10 mg tablet 10 mg PO BID #60 tab 10/26/20 gabapentin 300 mg capsule 300 mg PO BEDTIME #30 cap 11/14/20 Allergies Allergy/AdvReac Type Severity Reaction Status Date / Time No Known Drug Allergies Allergy Verified 11/14/20 07:53 Review of Systems Review of Systems Narrative: GENERAL: Denies chills, fatigue, malaise, fever, sweats, travel HEENT: + neck pain, + dental pain Denies sinus pain, ear pain, sore throat, difficulty swallowing RESPIRATORY: Denies dyspnea, cough, wheezing, hemoptysis, sputum. CARDIOVASCULAR: Denies chest pain, palpitations, orthopnea, edema GASTROINTESTINAL: Denies nausea, vomiting, abdominal pain, diarrhea, constipation, melena. : Denies dysuria, frequency, incontinence, hematuria, urinary retention, flank pain. MUSCULOSKELETAL: Denies weakness, joint pain, or bony pain SKIN: No rash, no erythema, no pruritus NEUROLOGIC: Nerve pain, headache PSYCHIATRIC: No concerning psychosocial issues. 12 point review of systems is negative except for those stated above and HPI Patient History Medical History (Updated 11/14/20 @ 08:58 by Radha Ennis DO) Acquired hypothyroidism Anxiety Deviated septum Diabetes type 2, uncontrolled Hyperglycemia (~07/2019) Irritable bowel syndrome Mixed hyperlipidemia Surgical History S/P appendectomy S/P hysterectomy S/P sinus surgery Social History Smoking Status: Former smoker Smoking Status: Former smoker alcohol intake frequency: a few times a month Alcohol type: wine Substance Use Type: does not use Exam Initial Vital Signs Initial Vital Signs: Vital Signs Temperature 98.6 F 11/14/20 07:47 Pulse Rate 73 11/14/20 07:47 Respiratory Rate 18 11/14/20 07:47 Blood Pressure 125/61 11/14/20 07:47 Pulse Oximetry 96 11/14/20 07:47 GENERAL: Well-appearing, well-nourished and in no acute distress. HEENT: Head atraumatic,EOMI, pupils reactive, face symmetric, no dental abscess, no facial swelling EARS: Right ear evaluated no erythema no vesicles NECK: Pain with movement CARDIOVASCULAR: Regular rate and rhythm without murmurs, rubs or gallops. RESPIRATORY: Breath sounds equal bilaterally, no wheezes rales or rhonchi. ABDOMEN: Soft, nontender. Normoactive bowel sounds all 4 quadrants. No guarding or rebound. EXTREMITIES: Normal range of motion, no clubbing or edema. Neurovascularly intact NEUROLOGICAL: Alert and oriented x4.Normal gait and speech. Applications Administrator strength equal bilaterally SKIN: Warm, dry, no laceration, no petechiae, no rashes or lesions. No vesicles appreciated no erythema Course Orders Ordered: ED Orders 11/14/20 08:03 CT cervical spine wo con Stat CT head/brain wo con Stat Discontinued Medications Ketorolac Tromethamine (Ketorolac 30 Mg/Ml Vial) 30 mg IM NOW ONE Stop: 11/14/20 08:05 Last Admin: 11/14/20 08:32 Dose: 30 mg Documented by: CHERRIE Vital Signs Vital signs: Vital Signs - 8 hr 11/14/20 07:47 11/14/20 09:18 Temperature 98.6 F Pulse Rate 73 72 Respiratory Rate 18 Blood Pressure 125/61 123/58 L Pulse Oximetry 96 99 MDM - Neck Pain/Injury Imaging Data CT scan - head: Radiologist's Impression: PROCEDURE: CT HEAD/BRAIN WO CON INDICATIONS: right sided MUSCLE pain getting worse X1WEEK TECHNIQUE: Noncontrast 4.5 mm thick angled axial sections acquired from the foramen magnum to the vertex, with coronal and sagittal reformats. For radiation dose reduction, the following was used: automated exposure control, adjustment of mA and/or kV according to patient size. COMPARISON: [facility], CT, HEAD WITHOUT CONTRAST, 10/13/2014, 10:29. [facility], CT, CT FACIAL BONES WO CON, 05/05/2020, 10:48. [facility], CT, CT CERVICAL SPINE WO CON, 11/14/2020, 8:27. [facility], CT, CT HEAD/BRAIN WO CON, 05/05/2020, 10:48. FINDINGS: Image quality: Excellent. CSF spaces: Basal cisterns are patent. No extra-axial fluid collections. The ventricles are symmetric in size and shape. Brain: No intracranial bleeds or masses. There is cerebral volume loss for age, with resultant ventricular and sulcal prominence. There are periventricular and deep white matter chronic small vessel ischemic changes. There is intracranial internal carotid artery atherosclerosis. Skull and face: Calvarium and visualized facial bones appear intact, without suspicious lesions. Sinuses: Visualized sinuses and mastoids are clear. IMPRESSION: Normal noncontrast head CT for age. Stable from prior. Dictated by: Parveen Fontaine M.D. on 11/14/2020 at 7:56 Approved by: Parveen Fontaine M.D. on 11/14/2020 at 7:57 CT - cervical spine: Radiologist's Impression: PROCEDURE: CT CERVICAL SPINE WO CON INDICATIONS: right sided pain TECHNIQUE: Noncontrast 3 mm thick sections acquired from the skull base to the T4 level. Sagittal and coronal reformats were then constructed. For radiation dose reduction, the following was used: automated exposure control, adjustment of mA and/or kV according to patient size. COMPARISON: [facility], CT, CT HEAD/BRAIN WO CON, 11/14/2020, 8:27. [facility], CT, CT CERVICAL SPINE WO CON, 05/05/2020, 10:48. FINDINGS: Image quality: This examination is somewhat limited by quantum mottle artifact. Bones: No fractures or dislocations. Visualized superior ribs are intact. Dextroconvex cervical thoracic scoliotic curvature is seen. There is [id number] disc space narrowing at C3-C4, moderate disc space narrowing at C4-C5. At least moderate disc space narrowing is seen at C5-C6 and C6-C7. Endplate irregularity and sclerosis are seen which worst at C6-C7. Post erected endplate osteophytes are seen, which are worst at C5-C6 and C6-C7. Soft tissues: Prevertebral soft tissues are normal in thickness. No paravertebral hematomas. No apical pneumothoraces. IMPRESSION: No acute abnormality is seen. Cervical spine degenerative changes are seen, which are worst inferiorly. Dictated by: Parveen Fontaine M.D. on 11/14/2020 at 7:54 MDM Narrative Medical decision making narrative: Patient seems to be having obvious nerve pain discomfort. I see no sign of shingles at this time. CT of her cervical spine does show stenosis and disc space narrowing. Toradol has seem to help she has gotten some relief. Will try starting her on gabapentin to see if that helps. Recommend following up with PCP who can monitor and change that. Discharge Plan Departure Patient Disposition: Home Clinical Impression: Neuropathy Instructions: DI for Cervical Radiculopathy, DI for Neck Pain Activity Restrictions/Additional Instructions: *You have been diagnosed with neuropathy/radiculopathy *What to do: He seemed to be experiencing nerve pain which can be quite painful. At this time let us try under medication to see if it helps. *Continue to take medications as directed-->SENT TO [facility] Gabapentin 300 mg at night--> this can be increased and adjusted but you need to talk to your primary care provider for doing so Ibuprofen 600 mg every 6 hours if needed for [id number] pain *Follow up with your primary care provider in 2-3 days *Return to ER if you should have increasing pain, numbness tingling or week or any new, worsening or concerning symptoms Prescriptions: New gabapentin 300 mg capsule 300 mg PO BEDTIME Qty: 30 RF: 0 No Action esomeprazole magnesium [Nexium 24HR] 20 mg capsule,delayed release(DR/EC) 20 mg PO DAILY RF: 0 citalopram 20 mg tablet 40 mg PO DAILY Qty: 180 RF: 3 levothyroxine 50 mcg tablet 50 mcg PO DAILY Qty: 90 RF: 3 propranolol 10 mg tablet 10 mg PO BID Qty: 60 RF: 3 Referrals: Anshul Wooten MD [Primary Care Provider] -
--- NOTE | 2020-11-14 08:03 | DI.CT.S_ITS ---
PROCEDURE: CT CERVICAL SPINE WO CON INDICATIONS: right sided pain TECHNIQUE: Noncontrast 3 mm thick sections acquired from the skull base to the T4 level. Sagittal and coronal reformats were then constructed. For radiation dose reduction, the following was used: automated exposure control, adjustment of mA and/or kV according to patient size. COMPARISON: [facility], CT, CT HEAD/BRAIN WO CON, 11/14/2020, 8:27. [facility], CT, CT CERVICAL SPINE WO CON, 05/05/2020, 10:48. FINDINGS: Image quality: This examination is somewhat limited by quantum mottle artifact. Bones: No fractures or dislocations. Visualized superior ribs are intact. Dextroconvex cervical thoracic scoliotic curvature is seen. There is ditq-ua-[id number] disc space narrowing at C3-C4, moderate disc space narrowing at C4-C5. At least moderate disc space narrowing is seen at C5-C6 and C6-C7. Endplate irregularity and sclerosis are seen which worst at C6-C7. Post erected endplate osteophytes are seen, which are worst at C5-C6 and C6-C7. Soft tissues: Prevertebral soft tissues are normal in thickness. No paravertebral hematomas. No apical pneumothoraces. IMPRESSION: No acute abnormality is seen. Cervical spine degenerative changes are seen, which are worst inferiorly. Dictated by: Parveen Fontaine M.D. on 11/14/2020 at 7:54 Approved by: Parveen Fontaine M.D. on 11/14/2020 at 7:56
--- NOTE | 2020-11-14 08:03 | DI.CT.S_ITS ---
PROCEDURE: CT HEAD/BRAIN WO CON INDICATIONS: right sided MUSCLE pain getting worse X1WEEK TECHNIQUE: Noncontrast 4.5 mm thick angled axial sections acquired from the foramen magnum to the vertex, with coronal and sagittal reformats. For radiation dose reduction, the following was used: automated exposure control, adjustment of mA and/or kV according to patient size. COMPARISON: [facility], CT, HEAD WITHOUT CONTRAST, 10/13/2014, 10:29. [facility], CT, CT FACIAL BONES WO CON, 05/05/2020, 10:48. [facility], CT, CT CERVICAL SPINE WO CON, 11/14/2020, 8:27. [facility], CT, CT HEAD/BRAIN WO CON, 05/05/2020, 10:48. FINDINGS: Image quality: Excellent. CSF spaces: Basal cisterns are patent. No extra-axial fluid collections. The ventricles are symmetric in size and shape. Brain: No intracranial bleeds or masses. There is cerebral volume loss for age, with resultant ventricular and sulcal prominence. There are periventricular and deep white matter chronic small vessel ischemic changes. There is intracranial internal carotid artery atherosclerosis. Skull and face: Calvarium and visualized facial bones appear intact, without suspicious lesions. Sinuses: Visualized sinuses and mastoids are clear. IMPRESSION: Normal noncontrast head CT for age. Stable from prior. Dictated by: Parveen Fontaine M.D. on 11/14/2020 at 7:56 Approved by: Parveen Fontaine M.D. on 11/14/2020 at 7:57
[2020-11-14] MEDS: KETOROLAC 30 MG/ML VIAL IM (08:32)
[2020-11-14 09:18] VITALS: BP 123/58; PULSE 72; O2SAT 99
== END 2020-11-14 09:22 | disposition home or self-care (01) ==
PROVIDERS: Emergency Provider Emergency Medicine; PCP Internal Medicine
DX: M54.12 Radiculopathy, cervical region (principal)
CPT/HCPCS: 70450; 72125; 96372; 99284; J1885

== ENCOUNTER → 2020-11-16 17:19 | Outpatient (CLI) | payer MEDICARE, OTHER, SELFPAY ==
[2020-11-16 18:07] LABS: Hemoglobin A1C% w Est Avg Glu 10.1 % (4.0-6.0)
== END ==
PROVIDERS: PCP Internal Medicine; Referring Provider Internal Medicine; Visit Provider Internal Medicine
DX: E11.65 Type 2 diabetes mellitus with hyperglycemia (principal)
CPT/HCPCS: 36415; 83036

== ENCOUNTER 2021-03-21 18:18 | Emergency (ER) | payer MEDICARE, OTHER, SELFPAY ==
[2021-03-21 18:24] VITALS: BP 162/74; PULSE 97; RESP 20; TEMP 36.6; O2SAT 98
[2021-03-21 18:54] LABS: COVID19 -Nasal RAPID POSITIVE (Negative)
--- NOTE | 2021-03-22 03:06 | ED.URI ---
HPI - URI/Sore Throat General Chief Complaint: Upper Respiratory Symptoms Stated Complaint: BAD COUGH HEADACHE Time Seen by Provider: 03/21/21 18:22 Source: patient Mode of arrival: Ambulatory History of Present Illness HPI Narrative: 70-year-old female nonsmoker with a history of GERD and diabetes presents with a chief complaint of 2 days of a dry and hacking cough as well as headache. She denies any fever or chills. She has had no nausea, vomiting or diarrhea. She denies any exposure to other persons with similar symptoms. She has had her full course of COVID vaccine. Related Data Home Medications Medication Instructions Recorded Confirmed esomeprazole magnesium 20 mg 20 mg PO DAILY 02/24/19 10/26/20 capsule,delayed release (Nexium 24HR) Previous Rx's Medication Instructions Recorded citalopram 20 mg tablet 40 mg PO DAILY #180 tab 05/31/20 levothyroxine 50 mcg tablet 50 mcg PO DAILY #90 tab 10/26/20 propranolol 10 mg tablet 10 mg PO BID #60 tab 10/26/20 gabapentin 300 mg capsule 300 mg PO BEDTIME #30 cap 11/14/20 Allergies Allergy/AdvReac Type Severity Reaction Status Date / Time No Known Drug Allergies Allergy Verified 11/14/20 07:53 Review of Systems Review of Systems Narrative: GENERAL: See HPI HEENT: Denies sinus pain, ear pain, sore throat, difficulty swallowing, dizziness. RESPIRATORY: See HPI CARDIOVASCULAR: Denies chest pain, palpitations, orthopnea, edema, GASTROINTESTINAL: Denies nausea, vomiting, abdominal pain, diarrhea, constipation, melena. : Denies dysuria, frequency, incontinence, hematuria, urinary retention. MUSCULOSKELETAL: denies weakness, joint pain, or bony pain SKIN: Denies rash, skin lesions, or other NEUROLOGIC: Denies weakness, headache, numbness, change in speech, confusion, seizures, incoordination. PSYCHIATRIC: No concerning psychosocial issues. 12 point review of systems is negative except for those stated above Patient History Medical History Acquired hypothyroidism Anxiety Deviated septum Diabetes type 2, uncontrolled Hyperglycemia (~07/2019) Irritable bowel syndrome Mixed hyperlipidemia Surgical History S/P appendectomy S/P hysterectomy S/P sinus surgery Social History Smoking Status: Former smoker Smoking Status: Former smoker tobacco type: cigarettes alcohol intake frequency: a few times a month Alcohol type: wine Substance Use Type: does not use Exam Narrative Exam Narrative: GEN: AOx3 and in mild distress EYES: Pupils are equal, round, and reactive to light and accommodation. Extraoccular muscles are intact bilaterally. There is no subconjunctival hemorrhage or exudate. CHEST: Lungs are clear to auscultation bilaterally and free of wheezes, rales, or rhonchi. Heart rate is regular rhythm, there are no murmurs, clicks, rubs, or gallops. There is no chest wall tenderness. ABD: Abdomen is soft and nontender. There is no guarding or rebound. Bowel sounds are normal in all 4 quadrants. There is no mass or organomegaly. EXT: Full painless ROM of all extremities with no loss of sensation or strength. SKIN: Warm, pink, and dry. No erythema or rash Initial Vital Signs Initial Vital Signs: Vital Signs Temperature 97.9 F 03/21/21 18:24 Pulse Rate 97 H 03/21/21 18:24 Respiratory Rate 20 03/21/21 18:24 Blood Pressure 162/74 H 03/21/21 18:24 Pulse Oximetry 98 03/21/21 18:24 Course Orders Ordered: ED Orders 03/21/21 18:29 COVID19 -Nasal swab/Pre-Proc Stat MDM - URI/Sore Throat Lab Data Labs: Lab Results 03/21/21 Range/Units 18:29 SARS-CoV-2 (PCR) Positive H (Negative) MDM Narrative Medical decision making narrative: Patient with 2 days of COVID symptoms. She test positive today. She shows no signs of respiratory distress and has stable vital signs. She was offered a referral for monoclonal antibodies but refused at this point time. Questions answered to her apparent satisfaction and return precautions discussed Discharge Plan Departure Patient Disposition: Home Clinical Impression: COVID-19 Instructions: Coronavirus Disease 2019 Activity Restrictions/Additional Instructions: *You have been diagnosed with [ COVID-19] *What to do: * per recommendations from the CDC and the [facility] Department of Health * stay home except to get medical care. Restrict activities outside your home, except for getting medical care. Do not go to work, school, or public areas. Avoid using public transportation, ride sharing, or taxis. * separate yourself from other people in your home. * call ahead before visiting your doctor * Wear a facemask * Cover your coughs and sneezes * Clean your hands often * Avoid sharing household items * Clean all high-touch services every day * Monitor your symptoms and seek prompt medical attention if your illness is worsening, particularly with difficulty in breathing. You may discontinue your isolation when: 1. You have been fever-free for at least 24 hours without the use of fever reducing medication, AND 2. Your symptoms are getting better 3. At least 10 days have passed since symptoms first appeared Individuals with laboratory confirmed COVID-19 who have not had any symptoms may discontinue home isolation when at least 10 days have passed since the date of their first COVID-19 diagnostic test and have had no subsequent illness Prescriptions: No Action esomeprazole magnesium [Nexium 24HR] 20 mg capsule,delayed release(DR/EC) 20 mg PO DAILY RF: 0 citalopram 20 mg tablet 40 mg PO DAILY Qty: 180 RF: 3 levothyroxine 50 mcg tablet 50 mcg PO DAILY Qty: 90 RF: 3 propranolol 10 mg tablet 10 mg PO BID Qty: 60 RF: 3 gabapentin 300 mg capsule 300 mg PO BEDTIME Qty: 30 RF: 0 Referrals: Anshul Wooten MD [Primary Care Provider] -
== END 2021-03-21 19:21 | disposition home or self-care (01) ==
PROVIDERS: Emergency Provider Emergency Medicine; PCP Internal Medicine
DX: U07.1 COVID-19 (principal)
CPT/HCPCS: 87635; 99281; 99282; C9803

== ENCOUNTER 2021-04-04 16:17 | Emergency (ER) | payer MEDICARE, OTHER, SELFPAY ==
[2021-04-04 16:49] VITALS: BP 134/79; PULSE 81; RESP 20; TEMP 36.6; O2SAT 99
[2021-04-04 17:25] LABS: COVID19 -Nasal RAPID Negative (Negative)
--- NOTE | 2021-04-04 17:39 | ED.RECABL ---
HPI - Recheck/Abnormal Lab/Rx <Joseph Narvaez PA-C - Last Filed: 04/04/21 20:00> General Chief Complaint: Recheck/Abnormal Lab/Rx Stated Complaint: NEEDS TO BE TESTED FOR COVID HAD COVID Time Seen by Provider: 04/04/21 17:39 Source: patient Mode of arrival: Ambulatory History of Present Illness HPI narrative: Patient is a 70-year-old female presenting to the emergency department today for a COVID test rule out COVID-19. Patient states that she is having company in the very near future and would like a test to rule out COVID-19. Of note, patient had recently been diagnosed with COVID-19 but states that her last day symptoms occurred approximately 1 week ago. She presents to the emergency department today asymptomatic. No fever, chills, chest pain, shortness of breath, cough, nausea, vomiting, diarrhea, abdominal pain, dysuria, hematuria reported. No other concerns voiced at this time. Related Data Home Medications Medication Instructions Recorded Confirmed esomeprazole magnesium 20 mg 20 mg PO DAILY 02/24/19 10/26/20 capsule,delayed release (Nexium 24HR) Previous Rx's Medication Instructions Recorded citalopram 20 mg tablet 40 mg PO DAILY #180 tab 05/31/20 levothyroxine 50 mcg tablet 50 mcg PO DAILY #90 tab 10/26/20 propranolol 10 mg tablet 10 mg PO BID #60 tab 10/26/20 gabapentin 300 mg capsule 300 mg PO BEDTIME #30 cap 11/14/20 Allergies Allergy/AdvReac Type Severity Reaction Status Date / Time No Known Drug Allergies Allergy Verified 11/14/20 07:53 Review of Systems <Joseph Narvaez PA-C - Last Filed: 04/04/21 20:00> Constitutional Constitutional: Denies chills, Denies fatigue, Denies fever(s), Denies frequent falls, Denies lethargy and Denies weakness Eyes Eyes: Denies loss of vision ENT Ears, Nose, Mouth, and Throat: Denies change in voice, Denies dizziness, Denies neck pain, Denies sore throat and Denies throat swelling Cardiovascular Cardiovascular: Denies chest pain, Denies irregular heart rhythm, Denies lightheadedness, Denies palpitations, Denies dyspnea, Denies dyspnea on exertion and Denies orthopnea Respiratory Respiratory: Denies cough, Denies dyspnea, Denies dyspnea on exertion and Denies wheezing Gastrointestinal Gastrointestinal: Denies abdominal pain, Denies change in bowel habits, Denies diarrhea, Denies nausea and Denies vomiting Genitourinary Genitourinary: Denies hematuria, Denies flank pain, Denies urinary incontinence and Denies urinary urgency Musculoskeletal Musculoskeletal: Denies neck pain, Denies numbness and Denies tingling Integumentary/Breasts Skin/Breast: Denies pruritus, Denies erythema, Denies rash and Denies wounds Neurologic Neurologic: Denies behavioral changes, Denies confusion, Denies dizziness, Denies frequent falls, Denies loss of vision, Denies numbness, Denies tingling and Denies weakness Psychiatric Psychiatric: Denies behavioral changes and Denies confusion Endocrine Endocrine: Denies fatigue and Denies palpitations Allergic/Immunologic Allergic/Immunologic: Denies urticaria, Denies throat swelling and Denies wheezing Patient History <Joseph Narvaez PA-C - Last Filed: 04/04/21 20:00> Medical History Acquired hypothyroidism Anxiety Deviated septum Diabetes type 2, uncontrolled Hyperglycemia (~07/2019) Irritable bowel syndrome Mixed hyperlipidemia Surgical History S/P appendectomy S/P hysterectomy S/P sinus surgery Social History Smoking Status: Former smoker Smoking Status: Former smoker tobacco type: cigarettes alcohol intake frequency: a few times a month Alcohol type: wine Substance Use Type: does not use Exam <Joseph Narvaez PA-C - Last Filed: 04/04/21 20:00> Narrative Exam Narrative: GENERAL: 70 year old patient appears stated age. Well-developed patient, in no acute distress. HEAD: Atraumatic. Normocephalic. EYES: Pupils equal round and reactive. Extraocular motions intact. No scleral icterus. No injection or drainage. ENT: Nose without bleeding, purulent drainage. Throat without erythema, tonsillar hypertrophy or exudate. Airway patent. NECK: Trachea midline. Non tender CARDIOVASCULAR: Regular rate and rhythm without murmurs, gallops, or rubs. RESPIRATORY: Clear to auscultation. Breath sounds equal bilaterally. No wheezes, rales, or rhonchi. GASTROINTESTINAL: Abdomen soft, non-tender, nondistended. EXTREMITIES: No edema or joint tenderness. BACK: Nontender without deformity or crepitance. No flank tenderness. NEURO: AOx3. SKIN: No rash or erythema of visible areas Initial Vital Signs Initial Vital Signs: Vital Signs Temperature 97.8 F 04/04/21 16:49 Pulse Rate 81 04/04/21 16:49 Respiratory Rate 20 04/04/21 16:49 Blood Pressure 134/79 04/04/21 16:49 Pulse Oximetry 99 04/04/21 16:49 <Otoniel Sepulveda MD - Last Filed: 04/05/21 08:31> Initial Vital Signs Initial Vital Signs: Vital Signs Temperature 97.8 F 04/04/21 16:49 Pulse Rate 81 04/04/21 16:49 Respiratory Rate 20 04/04/21 16:49 Blood Pressure 134/79 04/04/21 16:49 Pulse Oximetry 99 04/04/21 16:49 Course <Joseph Narvaez PA-C - Last Filed: 04/04/21 20:00> Course Course Narrative: COVID test ordered. Orders Ordered: ED Orders 04/04/21 16:56 COVID19 -Nasal swab/Pre-Proc Stat Vital Signs Vital signs: Vital Signs - 8 hr 04/04/21 16:49 Temperature 97.8 F Pulse Rate 81 Respiratory Rate 20 Blood Pressure 134/79 Pulse Oximetry 99 <Otoniel Sepulveda MD - Last Filed: 04/05/21 08:31> Orders Ordered: ED Orders 04/04/21 16:56 COVID19 -Nasal swab/Pre-Proc Stat Vital Signs Vital signs: Vital Signs - 8 hr 04/04/21 16:49 Temperature 97.8 F Pulse Rate 81 Respiratory Rate 20 Blood Pressure 134/79 Pulse Oximetry 99 MDM - Recheck/Abnormal Lab/Rx <Joseph Narvaez PA-C - Last Filed: 04/04/21 20:00> Lab Data Labs: Lab Results 04/04/21 Range/Units 16:56 SARS-CoV-2 (PCR) Negative (Negative) MDM Narrative Medical decision making narrative: Patient is a 70-year-old female presenting to the emergency department today for a COVID test rule out COVID-19. To consider COVID-19 versus viral upper respiratory infection. Overall for physical examination and history are reassuring. COVID swab test in the emergency department today returned negative. At this time patient feels comfortable being discharged home. Strict return precautions discussed with patient prior discharge. <Otoniel Sepulveda MD - Last Filed: 04/05/21 08:31> Lab Data Labs: Lab Results 04/04/21 Range/Units 16:56 SARS-CoV-2 (PCR) Negative (Negative) Discharge Plan Departure Patient Disposition: Home Clinical Impression: COVID-19 ruled out Activity Restrictions/Additional Instructions: *You have been diagnosed with COVID-19 ruled out *What to do: *Please continue to take your regular medications as directed. [ ] New medication prescriptions sent to your pharmacy: [ ] [ ] New medication written as a paper prescription [X] No new medications given *Please follow up with your primary care provider in 2-3 days, call for an appointment. Let them know you were seen in the Emergency Department and that we ask that you be seen in follow up. We will electronically transmit a record of today's note if your PCP is in our system *If you do not have a primary care provider please contact the [facility] Resource line at [phone]. They will ask some questions about your medical history and help get you set up with a doctor in the community. *Return to Emergency Department if you should have any new, worsening or concerning symptoms, such as fever greater than 101 F, shaking chills, worsening pain, persistent vomiting or other bothersome symptoms Prescriptions: No Action esomeprazole magnesium [Nexium 24HR] 20 mg capsule,delayed release(DR/EC) 20 mg PO DAILY 0RF citalopram 20 mg tablet 40 mg PO DAILY Qty: 180 3RF levothyroxine 50 mcg tablet 50 mcg PO DAILY Qty: 90 3RF propranolol 10 mg tablet 10 mg PO BID Qty: 60 3RF gabapentin 300 mg capsule 300 mg PO BEDTIME Qty: 30 0RF Referrals: Anshul Wooten MD [Primary Care Provider] - <Otoniel Sepulveda MD - Last Filed: 04/05/21 08:31> Cosign ED Attending Cosignature Attestation: I was immediately available in the department for consultation. This documentation has been reviewed and I agree with assessment and plan. Supervised by Otoniel Sepulveda MD
== END 2021-04-04 17:43 | disposition home or self-care (01) ==
PROVIDERS: Emergency Medicine; Emergency Provider Physician Assistant; PCP Internal Medicine
DX: Z20.822 Contact with and (suspected) exposure to COVID-19 (principal); Z86.16 Personal history of COVID-19
CPT/HCPCS: 87635; 99281; C9803

== ENCOUNTER 2021-04-25 18:21 | Emergency (ER) | payer MEDICARE, OTHER, SELFPAY ==
[2021-04-25] VITALS (10 sets, daily range): BP systolic 114–131; BP diastolic 56–85; PULSE 98–121; RESP 18–22; TEMP 35.9–36.8; O2SAT 95–98; BMI 27.3
--- NOTE | 2021-04-25 19:16 | CM.SWNOTE ---
DISTRIBUTION AGENT Assessment Note DISTRIBUTION AGENT receives consult and enters room to meet with patient. Patient is 70 y/o female who presents to the ED with concern for back, buttock and leg pain after twisting on staircase. It was reported that patient was tearful during triage due to recent loss of who of covid related symptoms in March 2021. Patient is tearful and laying on stomach during conversation. DISTRIBUTION AGENT asks about patient's supports during this time. Patient endorses that her son and neighbors check in with her daily. Patient endorses that she is taking it one day at a time. DISTRIBUTION AGENT asks if patient has utilized MH counselor services or Hospice grief services and patient denies and declines services at this time. DISTRIBUTION AGENT informs patient that these services are available when she is ready to access them, patient indicates understanding. DISTRIBUTION AGENT offers any further support as needed while in ED and patient indicates understanding but denies need at this time. Plan: Patient to be medically assessed by ED provider and to d/c when medically clear. KRISTINE Stoner
[2021-04-25] MEDS: KETOROLAC 30 MG/ML VIAL 15 MG IM (22:16)
--- NOTE | 2021-04-25 22:32 | ED_ITS ---
HPI - Back Pain/Injury General Chief Complaint: Back Pain/Injury Stated Complaint: TERRIBLE PAIN IN BACK, BUTT AND LEG LT SIDE Time Seen by Provider: 04/25/21 22:31 History of Present Illness HPI Narrative: Patient is a 70-year-old female history of sciatic pain, type 2 diabetes and hyperlipidemia presenting with left leg pain. She says this feels like sciatic pain is sharp shooting pain. She denies any injury. She says it has been ongoing for the last 4 days. 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 She has no changes in bowel or bladder habits. She has been taking Tylenol a 1000 mg every 6 hours she took ibuprofen. She has used ice she heat he has done stretching, but it simply is not going away and she is quite uncomfortable. She has previously been on gabapentin without any relief. Related Data Home Medications Medication Instructions Recorded Confirmed esomeprazole magnesium 20 mg 20 mg PO DAILY 02/24/19 10/26/20 capsule,delayed release (Nexium 24HR) Previous Rx's Medication Instructions Recorded citalopram 20 mg tablet 40 mg PO DAILY #180 tab 05/31/20 levothyroxine 50 mcg tablet 50 mcg PO DAILY #90 tab 10/26/20 propranolol 10 mg tablet 10 mg PO BID #60 tab 10/26/20 gabapentin 300 mg capsule 300 mg PO BEDTIME #30 cap 11/14/20 hydrocodone 5 mg-acetaminophen 325 1 tab PO Q6H PRN #10 tab 04/25/21 mg tablet prednisone 20 mg tablet 20 mg PO DAILY #5 tab 04/25/21 Allergies Allergy/AdvReac Type Severity Reaction Status Date / Time No Known Drug Allergies Allergy Verified 11/14/20 07:53 Review of Systems Review of Systems Narrative: GENERAL: Denies chills,fever HEENT: Denies throat pain RESPIRATORY: Denies dyspnea, cough, wheezing CARDIOVASCULAR: Denies chest pain, palpitations GASTROINTESTINAL: Denies nausea, vomiting MUSCULOSKELETAL: See HPI SKIN: No rash, no laceration, no pruritus NEUROLOGIC: Denies weakness, dizziness, headache, numbness 8 point review of systems is negative except for those stated above and HPI Patient History Medical History Acquired hypothyroidism Anxiety Deviated septum Diabetes type 2, uncontrolled Hyperglycemia (~07/2019) Irritable bowel syndrome Mixed hyperlipidemia Surgical History S/P appendectomy S/P hysterectomy S/P sinus surgery Social History Smoking Status: Former smoker Smoking Status: Former smoker tobacco type: cigarettes alcohol intake frequency: a few times a month Alcohol type: wine Substance Use Type: does not use Exam Initial Vital Signs Initial Vital Signs: Vital Signs Temperature 96.7 F L 04/25/21 18:49 Pulse Rate 121 H 04/25/21 18:49 Respiratory Rate 18 04/25/21 18:49 Blood Pressure 121/85 04/25/21 18:49 Pulse Oximetry 97 04/25/21 18:49 GENERAL: 70-year-old female appears uncomfortable lying in bed able to move around quite easily CARDIOVASCULAR: peripheral pulses in tact, cap refill <2 sec RESPIRATORY: No respiratory distress, speaks in full sentences without difficulty BACK: No vertebral tenderness no step-off, pain in left buttock which Sins sharp shooting pain down her leg. No significant muscle spasm is felt. EXTREMITIES: Normal range of motion, no clubbing or edema. Neurovascularly intact NEUROLOGICAL: Cranial nerves II through XII grossly intact. Normal gait and speech. SKIN: Warm, dry, no petechiae, no rashes or lesions. 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 Stat Discontinued Medications Hydrocodone Bitart/Acetaminophen (Hydrocodone/Acet 5/325 Prepack) 1 bottle MISC SEEINSTR ONE Stop: 04/25/21 22:42 Last Admin: 04/25/21 22:51 Dose: 1 bottle Documented by: SHEIRCE Ketorolac Tromethamine (Ketorolac 30 Mg/Ml Vial) 15 mg IM NOW ONE Stop: 04/25/21 22:12 Last Admin: 04/25/21 22:16 Dose: 15 mg Documented by: SHERICE Vital Signs Vital signs: Vital Signs - 8 hr 04/25/21 20:00 04/25/21 20:30 04/25/21 21:00 Blood Pressure 123/58 L 116/56 L 116/60 04/25/21 21:31 04/25/21 22:00 Blood Pressure 127/85 125/58 L MDM - Back Pain/Injury MDM Narrative Medical decision making narrative: Patient signs and symptoms are most consistent with sciatic pain. She is ambulatory in ED, toradol has had improvement. She has previously been on gabapentin without any improvement. Asking for cortisol shot have explained her that we do not do those. She may need physical therapy or outpatient MRI. Discharge Plan Departure Patient Disposition: Home Clinical Impression: Sciatica of left side Activity Restrictions/Additional Instructions: *You have been diagnosed with sciatic pain left side *What to do: You are doing all the right things please continue with stretching heating ice. You may need physical therapy, or injections or outpatient MRI. Please discuss these options with her primary care provider. *Continue to take medications as directed--> SENT TO [facility] [place] 1 tablet every 6 hours if needed for severe pain Ibuprofen 600 mg every 6 hours if needed for [id number] pain Prednisone 20 mg once a day for 5 days *Follow up with your primary care provider in 2-3 days or call [phone] *Return to ER if you should have increasing pain, changes in urine or stool, weakness in leg inability to walk or any new, worsening or concerning symptoms CONTROLLED SUBSTANCE DISCHARGE (Narcotoic/benzodiazepine/Flexeril/Phenergan) 1. You have been prescribed narcotic medications, it does have acetaminophen/Tylenol/paracetamol in it, DO NOT TAKE MORE THAN 4,00mg in 24 hours of Tylenol. TRAMADOL DOES NOT CONTAIN TYLENOL 2. Please understand that we cannot provide further refills of narcotics, benzodiazepines or controlled substances through the ED and her pain management will need to be through your provider. 3. While on these medications you cannot drive or operate heavy machinery. 4. You cannot sign legal documents or perform any duties such as this. 5. As long as you're taking opiate pain medications he should also be taking a stool softener such as Colace, Dulcolax, MiraLAX or prune juice, to help avoid constipation. Prescriptions: New hydrocodone-acetaminophen 5-325 mg tablet 1 tab PO Q6H PRN (Reason: pain) Qty: 10 0RF prednisone 20 mg tablet 20 mg PO DAILY Qty: 5 0RF No Action esomeprazole magnesium [Nexium 24HR] 20 mg capsule,delayed release(/EC) 20 mg PO DAILY 0RF citalopram 20 mg tablet 40 mg PO DAILY Qty: 180 3RF levothyroxine 50 mcg tablet 50 mcg PO DAILY Qty: 90 3RF propranolol 10 mg tablet 10 mg PO BID Qty: 60 3RF gabapentin 300 mg capsule 300 mg PO BEDTIME Qty: 30 0RF Referrals: Anshul Wooten MD [Primary Care Provider] -
[2021-04-25] MEDS: HYDROCODONE/ACET 5/325 PREPACK 1 BOTTLE MISC (22:51)
== END 2021-04-25 23:00 | disposition home or self-care (01) ==
PROVIDERS: Emergency Provider Emergency Medicine; PCP Internal Medicine
DX: M54.32 Sciatica, left side (principal); Z87.891 Personal history of nicotine dependence
CPT/HCPCS: 96372; 99283; J1885

== ENCOUNTER → 2021-09-29 09:59 | Outpatient (CLI) | payer MEDICARE, SELFPAY ==
[2021-09-29 10:56] LABS: Add Manual Diff / Slide Review NO; Basophils Absolute Auto 100 /uL (0-100); Basophils Percent Auto 0.8 % (0-2); Eosinophils Absolute Auto 200 /uL (0-450); Eosinophils Percent Auto 3.4 % (2-4); Hematocrit 37.7 % (36-46); Hemoglobin 12.7 g/dL (12.0-16.0); Lymphocytes Absolute Auto 1800 /uL (1100-4500); Mean Corpuscular HGB Conc 33.6 % (30-36); Mean Corpuscular Hemoglobin 27.6 PG (26-34); Mean Corpuscular Volume 82.3 fL (80-100); Monocytes Absolute Auto 400 /uL (0-900); Monocytes Percent Auto 5.5 % (3-14); Neutrophils Absolute Auto 4400 /uL (1500-7000); Neutrophils Percent Auto 64.3 % (50-75); Platelet Count 240 X10^3/uL (150-400); Red Blood Cell Count 4.58 X10^6/uL (4.0-5.2); Red Cell Distribution Width 15.1 % (11.6-14.8); White Blood Cell Count 6.8 X10^3/uL (4.5-11.0)
[2021-09-29 11:04] LABS: Hemoglobin A1C% w Est Avg Glu 9.1 % (4.0-6.0)
[2021-09-29 11:14] LABS: Alanine Aminotransferase 28 IU/L (<35); Albumin 3.9 g/dL (3.5-5.0); Albumin Globulin Ratio 1.2 (1.0-2.8); Alkaline Phosphatase 83 U/L (38-126); Aspartate Aminotransferase 28 IU/L (14-36); BUN Creatinine Ratio 15.6 (6-22); Bilirubin Total 0.3 mg/dL (0.2-1.3); Blood Urea Nitrogen 10 mg/dL (7-17); Calcium 8.8 mg/dL (8.4-10.2); Carbon Dioxide 29 mmol/L (22-32); Chloride 104 mmol/L (98-107); Estimated Glomerular Filt Rate > 60 mL/min (>60); Globulin 3.3 g/dL (1.7-4.1); Glucose 145 mg/dL (80-110); HEMOLYSIS < 15 (0-50); Lipase 60 U/L (23-300); Potassium 3.8 mmol/L (3.4-5.1); Sodium 142 mmol/L (137-145); Total Protein 7.2 g/dL (6.3-8.2)
[2021-09-30 08:42] LABS: HBsAg Screen Negative (Negative); Hepatitis A Antibody IgM Negative (Negative); Hepatitis B Core Antibody IgM Negative (Negative); Hepatitis C Antibody 0.1 s/co ratio (0.0-0.9)
== END ==
PROVIDERS: PCP Internal Medicine; Referring Provider Student in an Organized Health Care Education/Training Program; Visit Provider Student in an Organized Health Care Education/Training Program
DX: A09 Infectious gastroenteritis and colitis, unspecified (principal); E11.65 Type 2 diabetes mellitus with hyperglycemia
CPT/HCPCS: 36415; 80053; 80074; 83036; 83690; 85025; 87177

== ENCOUNTER → 2022-01-23 12:52 | Outpatient (CLI) | payer MEDICARE, SELFPAY ==
[2022-01-23 13:31] LABS: Add Manual Diff / Slide Review NO; Basophils Absolute Auto 100 /uL (0-100); Basophils Percent Auto 0.8 % (0-2); Eosinophils Absolute Auto 200 /uL (0-450); Eosinophils Percent Auto 3.3 % (2-4); Hematocrit 39.8 % (36-46); Hemoglobin 13.2 g/dL (12.0-16.0); Lymphocytes Absolute Auto 2100 /uL (1100-4500); Lymphocytes Percent Auto 32.8 % (25-40); Mean Corpuscular HGB Conc 33.2 % (30-36); Mean Corpuscular Hemoglobin 27.5 PG (26-34); Mean Corpuscular Volume 82.8 fL (80-100); Monocytes Absolute Auto 300 /uL (0-900); Monocytes Percent Auto 4.6 % (3-14); Neutrophils Absolute Auto 3700 /uL (1500-7000); Neutrophils Percent Auto 58.5 % (50-75); Platelet Count 240 X10^3/uL (150-400); Red Blood Cell Count 4.81 X10^6/uL (4.0-5.2); Red Cell Distribution Width 14.6 % (11.6-14.8); White Blood Cell Count 6.3 X10^3/uL (4.5-11.0)
[2022-01-23 13:43] LABS: Alanine Aminotransferase 19 IU/L (<35); Albumin 4.3 g/dL (3.5-5.0); Albumin Globulin Ratio 1.1 (1.0-2.8); Alkaline Phosphatase 96 U/L (38-126); Aspartate Aminotransferase 24 IU/L (14-36); BUN Creatinine Ratio 18.8 (6-22); Bilirubin Total 0.4 mg/dL (0.2-1.3); Blood Urea Nitrogen 13 mg/dL (7-17); C-Reactive Protein Quant 0.6 mg/dL (<1.0); Calcium 9.3 mg/dL (8.4-10.2); Carbon Dioxide 29 mmol/L (22-32); Chloride 102 mmol/L (98-107); Estimated Glomerular Filt Rate > 60 mL/min (>60); Globulin 3.8 g/dL (1.7-4.1); Glucose 117 mg/dL (80-110); HEMOLYSIS < 15 (0-50); Potassium 4.2 mmol/L (3.4-5.1); Sodium 140 mmol/L (137-145); Total Protein 8.1 g/dL (6.3-8.2)
[2022-01-23 13:50] LABS: Erythrocyte Sedimentation Rate 15 MM/HR (0-20)
== END ==
PROVIDERS: PCP Internal Medicine; Referring Provider Internal Medicine Gastroenterology; Visit Provider Internal Medicine Gastroenterology
DX: R10.30 Lower abdominal pain, unspecified (principal); R10.9 Unspecified abdominal pain; K59.1 Functional diarrhea
CPT/HCPCS: 36415; 80053; 85025; 85651; 86140

== ENCOUNTER → 2022-01-25 11:01 | Outpatient (CLI) | payer MEDICARE, SELFPAY ==
--- NOTE | 2022-01-25 | DI.CT.S_ITS ---
PROCEDURE: CT ABDOMEN PELVIS W CON INDICATIONS: Unspecified abdominal pain TECHNIQUE: After the administration of oral and IV contrast, axial sections were acquired from the lung bases to the pubic symphysis. Coronal and sagittal reformats were performed. For radiation dose reduction, the following was used: automated exposure control, adjustment of mA and/or kV according to patient size. COMPARISON: [facility], CT, CT ABDOMEN PELVIS W CON, 11/21/2017, 12:31. FINDINGS: Image quality: Excellent. Lung bases: There is a calcified granuloma in the right lower lobe. Heart: No significant findings. ABDOMEN: Liver: Normal size. Moderate hepatic steatosis. Gallbladder: Unremarkable. Biliary ducts: Unremarkable. Pancreas: Unremarkable. Spleen: Unremarkable. Adrenal Glands: Unremarkable. Kidneys and Ureters: Unremarkable. Stomach and Bowel: Stomach, small bowel loops, and colon are unremarkable. There is a large amount of stool in colon. Appendix is normal. Peritoneum: No abnormal intraperitoneal fluid. No free air. Ventral Wall: No hernia. Abdominal Nodes: No retroperitoneal or mesenteric adenopathy by size criteria. Vessels: Aorta and inferior vena cava are normal in size. PELVIS: Pelvic Organs: Unremarkable. Bladder: Unremarkable. Pelvic Nodes: No enlarged lymph nodes. Miscellaneous: No inguinal hernias are seen. Bones: There are degenerative changes in lumbar spine. Moderate central canal stenosis at L4-L5 and L5-S1. IMPRESSION: 1. No acute abnormalities in abdomen or pelvis. 2. Hepatic steatosis. 3. Small hiatal hernia. 4. A large amount of stool in colon. Dictated by: Leeanne Villalta M.D. on 01/25/2022 at 13:13 Approved by: Leeanne Villalta M.D. on 01/25/2022 at 13:18
== END ==
PROVIDERS: PCP Internal Medicine; Referring Provider Physician Assistant; Visit Provider Physician Assistant
DX: K21.9 Gastro-esophageal reflux disease without esophagitis (principal); K76.0 Fatty (change of) liver, not elsewhere classified; K44.9 Diaphragmatic hernia without obstruction or gangrene; K59.1 Functional diarrhea; R10.30 Lower abdominal pain, unspecified; K59.00 Constipation, unspecified
CPT/HCPCS: 74177

== ENCOUNTER → 2022-02-03 10:13 | Outpatient (CLI) | payer MEDICARE, OTHER, SELFPAY ==
[2022-02-03 15:28] LABS: Creatinine Urine Random 48.8 mg/dL
[2022-02-03 15:34] LABS: Hemoglobin A1C% w Est Avg Glu 7.2 % (4.0-6.0)
[2022-02-03 15:36] LABS: Microalbumin Urine Random < 0.6 mg/dL (0-1.6)
== END ==
PROVIDERS: PCP Internal Medicine; Referring Provider Internal Medicine; Visit Provider Internal Medicine
DX: E11.65 Type 2 diabetes mellitus with hyperglycemia (principal); K58.9 Irritable bowel syndrome, unspecified
CPT/HCPCS: 36415; 82043; 82570; 83036

== ENCOUNTER → 2022-02-28 11:01 | Outpatient (CLI) | payer MEDICARE, OTHER, SELFPAY ==
--- NOTE | 2022-03-15 10:25 | DIAB.MNT ---
Initial Diabetes Medical Nutrition Therapy Assessment Name: Carolina Jung Date: 02/28/22 Time: 11:10-11:25a Dx: Type II Diabetes Provider:Wooten Carolina presents for initial visit, but states she must leave early due to another appointment. Recently new dx of T2Dm with HgA1c of 7.2%. +FH of DM with father, brother, and sister. Reports she was recently 10 months ago. Has been feeling depressed and eating more sweets as a result. reports increased stress with dynamics with step children. Tearful today about this. States sometimes she feels so hungry that she may over consume or binge. Endorses a lot of frozen meals. Does like fish and chicken. Her main meal is at 2p. Carolina is going to [place] this month with her sister. Plans to follow-up after trip. States she cannot live without carbs. Today she is looking for some easy recommendations that she can implement on vacation. Anthropometrics: Ht: 5' Wt: 142# Physical Activity: 3x per week walking/yoga Self-Monitoring Blood Glucose: None Diabetes Medications: 500mg Metformin BID Pertinent Labs: 01/2022 HgA1c; 7.2% Past Medical History: (Last Reviewed 04/25/21 @ 22:48 by Radha Ennis DO) Acquired hypothyroidism Anxiety Deviated septum s/p surgery Diabetes type 2, uncontrolled Hyperglycemia (~07/2019) Irritable bowel syndrome Mixed hyperlipidemia Nutrition Rx: Plate Method Nutrition Diagnosis: - Nutrition and food related knowledge deficit r/t new dx of T2DM aeb HgA1c of 7.2% Intervention: This participant was very receptive. Provided appropriate educational handouts. Discussed the following topics: Plate Method, impact of macronutrients on blood sugar, pairing macronutrients and spreading out carbohydrates for better blood glucose management Practicing moderation instead of complete restriction of carbs Recommended servings for carbohydrates at meals and snacks Role of physical activity and following provider guidelines for safety Created SMART goals for patient self-care and success. Goals: Pair carbs with protein Try to be active after each meal Follow-up: MARLON SOMMER follow-up in 4 weeks Keyla Umana RDN, ROS Certified Diabetes Care and Hand Mexican Food Maker P: [phone] Thank you for this referral
== END ==
PROVIDERS: PCP Internal Medicine; Referring Provider Internal Medicine; Visit Provider Internal Medicine
DX: E11.9 Type 2 diabetes mellitus without complications (principal); Z79.84 Long term (current) use of oral hypoglycemic drugs; Z71.3 Dietary counseling and surveillance
CPT/HCPCS: 97802

== ENCOUNTER → 2022-04-04 14:59 | Outpatient (CLI) | payer MEDICARE, SELFPAY ==
--- NOTE | 2022-04-18 14:22 | DIAB.MNTFU ---
Follow-up Diabetes Medical Nutrition Therapy Assessment Name: Carolina Jung Date: 04/04/22 Time: 310-4p Dx: Type II Diabetes Carolina Mcgee presents for follow-up. States she was mindful of food intake and walking while in [place] with her sister. States she has been adding pro to CHO and aiming for lower sugar in beverages. Has concerns today about binging on carb foods, ie chips or candy. Diet Recall: 10a: coffee and almond milk 1p: salmon with 1c corn, 2-3 TBS rice, pobalano and queso fresco 3-4p: nothing or 1 fruit 5p: 2x per week coffee and almond crisp 8p: pasta with tuna and peas OR 6 sandwich 10p: 2 candies OR 1 eng muffin with butter and marmalade or hazelnut/rishabh spread or 1-2 jolly ranchers Beverages: water x 4-6c, coffee 2c Anthropometrics: Ht: 5' Wt: 140# reported Physical Activity: Walking 40 min daily. was hiking [employer] [place] trip Self-Monitoring Blood Glucose: None. Not interested in checking. Diabetes Medications: 500mg Metformin BID Pertinent Labs: 01/2022 HgA1c; 7.2% Past Medical History: (Last Reviewed 04/25/21 @ 22:48 by Radha Ennis DO) Acquired hypothyroidism Anxiety Deviated septum s/p surgery Diabetes type 2, uncontrolled Hyperglycemia (~07/2019) Irritable bowel syndrome Mixed hyperlipidemia Nutrition Rx: Carbohydrates: 135 per day 30-45g per meal 15-30g per snack Nutrition Diagnosis: - Nutrition and food related knowledge deficit r/t new dx of T2DM aeb HgA1c of 7.2% and pt report Intervention: This participant was very receptive. Provided appropriate educational handouts. Discussed the following topics: Plate Method, impact of macronutrients on blood sugar, meal timing, carbohydrate counting, pairing macronutrients and spreading out carbohydrates for better blood glucose management Reading food labels for net carbs Physical activity plan and progress Created SMART goals for patient self-care and success. Goals: Pair carbs with protein- met Try to be active after each meal- met Portion chips as discussed- new Read food labels- new Follow-up: MARLON SOMMER follow-up in 3-4 weeks Keyla Umana RDN, ROS Certified Diabetes Care and Welder Apprentice Combination P: [phone] Thank you for this referral
== END ==
PROVIDERS: PCP Internal Medicine; Referring Provider Internal Medicine; Visit Provider Internal Medicine
DX: E11.9 Type 2 diabetes mellitus without complications (principal); Z79.84 Long term (current) use of oral hypoglycemic drugs; Z71.3 Dietary counseling and surveillance
CPT/HCPCS: 97803

== ENCOUNTER → 2022-05-17 13:03 | Outpatient (CLI) | payer MEDICARE, SELFPAY ==
--- NOTE | 2022-05-25 13:37 | DIAB.MNTFU ---
Follow-up Diabetes Medical Nutrition Therapy Assessment Name: Carolina Jung (Arely) Date: 05/17/22 Time: 110-205 Dx: Type II Diabetes Arely presents for follow-up. States she plans to go to [place] for 2 months. Feels she is more active and eats more fresh produce there. Endorses cravings for chips or bread in the evening. Is pairing with protein. Adding fruit into her diet in moderation. States she has been feeling very sad recently due to her son's stress and he is coping with ETOH. This has impacted her motivation for consistent food intake over the weekend. States she has tried to find a therapist, but has been unsuccessful due to shortage of providers doing in-person visits. Does not want virtual. States she does not eat breakfast. Feels she should be doing this, especially as a good example for her granddaughter. Open to a balanced snack at this time. No PCP visit scheduled for DM follow-up. Not currently reading food labels. Anthropometrics: Ht: 5' Wt: 140# reported last visit. No new wt today Physical Activity: Walking q day for 40 mins Self-Monitoring Blood Glucose: None. Not interested in checking. Diabetes Medications: 500mg Metformin BID Pertinent Labs: 01/2022 HgA1c; 7.2% Past Medical History: (Last Reviewed 04/25/21 @ 22:48 by Radha Ennis DO) Acquired hypothyroidism Anxiety Deviated septum s/p surgery Diabetes type 2, uncontrolled Hyperglycemia (~07/2019) Irritable bowel syndrome Mixed hyperlipidemia Nutrition Rx: Carbohydrates: 135 per day 30-45g per meal 15-30g per snack Nutrition Diagnosis: - Nutrition and food related knowledge deficit r/t new dx of T2DM aeb HgA1c of 7.2% and pt report - in progress Intervention: This participant was very receptive. Provided appropriate educational handouts. Discussed the following topics: Balanced snacks and meal timing Stress management and impact on health and BG Importance of care team with DM care Plan for nutrition in [place] Strategies for cravings Physical activity plan and progress Created SMART goals for patient self-care and success. Goals: Portion chips as discussed- met Read food labels- not met Yoga 2-3x per week- new Add 10am snack- new make f/u PCP appt - new Follow-up: RDSaul CDCES follow-up after [place] trip. [facility] she will be gone for 2 months and would like to call once she returns. will discuss food labels again next visit. Keyla Umana RDN, [facility] Certified Diabetes Care and [employer] Rag Washer P: [phone] Thank you for this referral
== END ==
PROVIDERS: PCP Internal Medicine; Referring Provider Internal Medicine; Visit Provider Internal Medicine
DX: E11.9 Type 2 diabetes mellitus without complications (principal); Z79.84 Long term (current) use of oral hypoglycemic drugs; Z71.3 Dietary counseling and surveillance
CPT/HCPCS: 97803

== ENCOUNTER → 2022-08-30 13:06 | Outpatient (CLI) | payer MEDICARE, SELFPAY ==
[2022-08-31 09:48] LABS: x Labcorp Estim. Avg Glu (eAG) 171 mg/dL (.); x Labcorp Hemoglobin A1c 7.6 % (4.8-5.6)
== END ==
PROVIDERS: PCP Internal Medicine; Referring Provider Internal Medicine; Visit Provider Internal Medicine
DX: E11.65 Type 2 diabetes mellitus with hyperglycemia (principal)
CPT/HCPCS: 36415; 83036

== ENCOUNTER → 2022-10-06 11:56 | Outpatient (CLI) | payer MEDICARE, SELFPAY ==
--- NOTE | 2022-10-06 | DI.CT.S_ITS ---
PROCEDURE: CT ABDOMEN PELVIS W CON INDICATIONS: Lower abdominal pain. Routine screening TECHNIQUE: After the administration of oral and IV contrast, axial sections were acquired from the lung bases to the pubic symphysis. Coronal and sagittal reformats were performed. For radiation dose reduction, the following was used: automated exposure control, adjustment of mA and/or kV according to patient size. COMPARISON: [facility], US, US PELVIC COMPLETE, 11/13/2017, 8:18. [facility], CT, CT ABDOMEN PELVIS W CON, 11/21/2017, 12:31. [facility], CT, CT ABDOMEN PELVIS W CON, 01/25/2022, 12:56. FINDINGS: Image quality: Excellent. Lung bases: Small hiatal hernia. Heart: No significant findings. ABDOMEN: Liver: Normal size. Mild hepatic steatosis. Gallbladder: Unremarkable. Biliary ducts: Unremarkable. Pancreas: Unremarkable. Spleen: Unremarkable. Adrenal Glands: Unremarkable. Kidneys and Ureters: Unremarkable. Stomach and Bowel: Stomach, small bowel loops, and colon are unremarkable. There is a moderate amount of stool in colon. Appendix is not visualized. No inflammatory changes in the right lower quadrant. Peritoneum: No abnormal intraperitoneal fluid. No free air. Ventral Wall: No hernia. Abdominal Nodes: No retroperitoneal or mesenteric adenopathy by size criteria. Vessels: Aorta and inferior vena cava are normal in size. PELVIS: Pelvic Organs: Uterus is absent. The ovaries are not visualized. Bladder: Unremarkable. Pelvic Nodes: No enlarged lymph nodes. Miscellaneous: No inguinal hernias are seen. Bones: Unremarkable. IMPRESSION: 1. A cause for lower quadrant pain is not identified. 2. Hepatic steatosis. 3. Small hiatal hernia. Dictated by: Leeanne Villalta M.D. on 10/06/2022 at 15:46 Approved by: Leeanne Villalta M.D. on 10/06/2022 at 15:57
--- NOTE | 2022-10-06 11:59 | DI.MG.S_ITS ---
BILATERAL DIGITAL SCREENING MAMMOGRAM 3D/2D WITH CAD: 10/06/2022 CLINICAL: Routine screening. Comparison is made to exam dated: 04/28/2016 mammogram - [facility]. There are scattered areas of fibroglandular density in both breasts (category b / 25%-50% glandular tissue). Current study was also evaluated with a Computer Aided Detection (CAD) system. No significant masses, calcifications, or other findings are seen in either breast. There has been no significant interval change. IMPRESSION: NEGATIVE There is no mammographic evidence of malignancy. A 1 year screening mammogram is recommended. Based on the Tyrer Cuzick model (a risk assessment model) the patient's lifetime risk is 3.9% and her 10 year risk is 2.6%. According to the ACR, ACS, and NCCN guidelines, an annual breast MRI exam along with mammogram is recommended if the patient's lifetime risk is 20% or greater. This exam was interpreted at Station ID: [id number]. NOTE: For mammograms, a report in lay terms will be sent to the patient. Approximately 15% of breast malignancies will not be visualized mammographically. In the management of a palpable breast mass, a negative mammogram must not discourage biopsy of a clinically suspicious lesion. Electronically Signed By: Surjit frazier/citlalli:10/06/2022 17:09:17 letter sent: Normal Exam ACR BI-RADS Category 1: Negative 3341F
[2022-10-06 12:28] LABS: Estimated Glomerular Filt Rate > 60 mL/min (>60)
== END ==
PROVIDERS: Specialist; PCP Internal Medicine; Referring Provider Internal Medicine; Visit Provider Internal Medicine
DX: Z12.31 Encounter for screening mammogram for malignant neoplasm of breast (principal); R10.30 Lower abdominal pain, unspecified; R10.9 Unspecified abdominal pain; K59.1 Functional diarrhea; K21.9 Gastro-esophageal reflux disease without esophagitis; K76.0 Fatty (change of) liver, not elsewhere classified; K44.9 Diaphragmatic hernia without obstruction or gangrene
CPT/HCPCS: 36415; 74177; 77063; 77067; 82565; Q9967

== ENCOUNTER → 2022-12-05 09:31 | Outpatient (CLI) | payer MEDICARE, SELFPAY ==
[2022-12-05 12:44] LABS: Hematocrit 37.7 % (36-46); Hemoglobin 12.6 g/dL (12.0-16.0); Mean Corpuscular HGB Conc 33.4 % (30-36); Mean Corpuscular Hemoglobin 27.5 PG (26-34); Mean Corpuscular Volume 82.4 fL (80-100); Platelet Count 249 X10^3/uL (150-400); Red Blood Cell Count 4.57 X10^6/uL (4.0-5.2); Red Cell Distribution Width 15.2 % (11.6-14.8); White Blood Cell Count 6.7 X10^3/uL (4.5-11.0)
[2022-12-05 13:29] LABS: Alanine Aminotransferase 20 IU/L (<35); Albumin Globulin Ratio 1.3 (1.0-2.8); Alkaline Phosphatase 94 U/L (38-126); BUN Creatinine Ratio 22.4 (6-22); Bilirubin Total 0.6 mg/dL (0.2-1.3); Blood Urea Nitrogen 13 mg/dL (7-17); Calcium 9.3 mg/dL (8.4-10.2); Chloride 102 mmol/L (98-107); Cholesterol 256 mg/dL (140-199); Estimated Glomerular Filt Rate > 60 mL/min (>60); Globulin 3.1 g/dL (1.7-4.1); Glucose 151 mg/dL (80-110); HDL Cholesterol 50 mg/dL (40-60); HEMOLYSIS < 15 (0-50); LDL Cholesterol Calculated 166 mg/dL (<100); Potassium 4.4 mmol/L (3.4-5.1); Sodium 136 mmol/L (137-145); Total Protein 7.1 g/dL (6.3-8.2); Triglycerides 200 mg/dL (35-150)
[2022-12-05 13:45] LABS: Carbon Dioxide 27 mmol/L (22-32)
[2022-12-05 14:27] LABS: Aspartate Aminotransferase 22 IU/L (14-36)
[2022-12-05 18:17] LABS: Free T4, Direct Thyroxine 1.42 ng/dL (0.78-2.19)
[2022-12-05 18:31] LABS: Thyroid Stimulating Hormone 2.47 uIU/mL (0.47-4.68)
[2022-12-07 05:52] LABS: x Labcorp Estim. Avg Glu (eAG) 180 mg/dL (.); x Labcorp Hemoglobin A1c 7.9 % (4.8-5.6)
== END ==
PROVIDERS: Internal Medicine; PCP Internal Medicine; Referring Provider Internal Medicine; Visit Provider Internal Medicine
DX: E03.9 Hypothyroidism, unspecified (principal); E78.5 Hyperlipidemia, unspecified; I87.2 Venous insufficiency (chronic) (peripheral); E11.65 Type 2 diabetes mellitus with hyperglycemia; K58.9 Irritable bowel syndrome, unspecified; E11.69 Type 2 diabetes mellitus with other specified complication
CPT/HCPCS: 36415; 80053; 80061; 83036; 84439; 84443; 85027

== ENCOUNTER → 2023-04-18 09:09 | Outpatient (CLI) | payer MEDICARE, SELFPAY ==
[2023-04-18 10:15] LABS: Hemoglobin A1C% w Est Avg Glu 9.9 % (4.0-6.0)
[2023-04-18 10:25] LABS: Alanine Aminotransferase 18 IU/L (<35); Albumin 3.9 g/dL (3.5-5.0); Albumin Globulin Ratio 1.3 (1.0-2.8); Alkaline Phosphatase 82 U/L (38-126); Aspartate Aminotransferase 20 IU/L (14-36); BUN Creatinine Ratio 21.5 (6-22); Bilirubin Total 0.5 mg/dL (0.2-1.3); Blood Urea Nitrogen 14 mg/dL (7-17); Calcium 9.8 mg/dL (8.4-10.2); Carbon Dioxide 28 mmol/L (22-32); Chloride 102 mmol/L (98-107); Cholesterol 133 mg/dL (140-199); Estimated Glomerular Filt Rate > 60 mL/min (>60); Glucose 191 mg/dL (80-110); HDL Cholesterol 48 mg/dL (40-60); HEMOLYSIS < 15 (0-50); LDL Cholesterol Calculated 56 mg/dL (<100); Potassium 4.5 mmol/L (3.4-5.1); Sodium 138 mmol/L (137-145); Total Protein 6.9 g/dL (6.3-8.2); Triglycerides 144 mg/dL (35-150)
[2023-04-18 11:22] LABS: Creatinine Urine Random 93.3 mg/dL
[2023-04-18 11:24] LABS: Microalbumi Creatinin Ratio Ur 9.6 ug/mg CR (<30); Microalbumin Urine Random 0.9 mg/dL (0-1.6)
== END ==
PROVIDERS: PCP Internal Medicine; Referring Provider Internal Medicine; Visit Provider Internal Medicine
DX: E11.69 Type 2 diabetes mellitus with other specified complication (principal); E78.5 Hyperlipidemia, unspecified; E78.2 Mixed hyperlipidemia
CPT/HCPCS: 36415; 80053; 80061; 82043; 82570; 83036

== ENCOUNTER → 2023-09-04 14:08 | Outpatient (CLI) | payer MEDICARE, SELFPAY ==
[2023-09-04 15:08] LABS: Hemoglobin A1C% w Est Avg Glu 11.2 % (4.0-6.0)
[2023-09-04 15:18] LABS: BUN Creatinine Ratio 18.6 (6-22); Blood Urea Nitrogen 13 mg/dL (7-17); Calcium 9.8 mg/dL (8.4-10.2); Carbon Dioxide 29 mmol/L (22-32); Chloride 103 mmol/L (98-107); Estimated Glomerular Filt Rate > 60 mL/min (>60); Glucose 181 mg/dL (80-110); HEMOLYSIS < 15 (0-50); Potassium 4.1 mmol/L (3.4-5.1); Sodium 138 mmol/L (137-145)
== END ==
PROVIDERS: PCP Family Medicine; Referring Provider Family Medicine; Visit Provider Family Medicine
DX: E11.69 Type 2 diabetes mellitus with other specified complication (principal); E78.5 Hyperlipidemia, unspecified; E03.9 Hypothyroidism, unspecified; E78.2 Mixed hyperlipidemia
CPT/HCPCS: 36415; 80048; 83036

== ENCOUNTER → 2023-10-11 10:33 | Outpatient (CLI) | payer MEDICARE, SELFPAY ==
[2023-10-11 11:20] LABS: Add Manual Diff / Slide Review NO; Basophils Absolute Auto 0 /uL (0-100); Basophils Percent Auto 0.7 % (0-2); Eosinophils Absolute Auto 100 /uL (0-450); Eosinophils Percent Auto 0.8 % (2-4); Hematocrit 39.1 % (36-46); Hemoglobin 12.7 g/dL (12.0-16.0); Lymphocytes Absolute Auto 1700 /uL (1100-4500); Lymphocytes Percent Auto 23.5 % (25-40); Mean Corpuscular HGB Conc 32.5 % (30-36); Monocytes Absolute Auto 300 /uL (0-900); Monocytes Percent Auto 4.3 % (3-14); Neutrophils Absolute Auto 5100 /uL (1500-7000); Neutrophils Percent Auto 70.7 % (50-75); Platelet Count 206 X10^3/uL (150-400); Red Blood Cell Count 4.71 X10^6/uL (4.0-5.2); Red Cell Distribution Width 15.1 % (11.6-14.8); White Blood Cell Count 7.3 X10^3/uL (4.5-11.0)
[2023-10-11 11:30] LABS: Hemoglobin A1C% w Est Avg Glu 10.9 % (4.0-6.0)
[2023-10-11 11:52] LABS: Alanine Aminotransferase 23 IU/L (<35); Albumin 4.2 g/dL (3.5-5.0); Albumin Globulin Ratio 1.6 (1.0-2.8); Alkaline Phosphatase 90 U/L (38-126); Aspartate Aminotransferase 23 IU/L (14-36); BUN Creatinine Ratio 26.2 (6-22); Bilirubin Total 0.4 mg/dL (0.2-1.3); Blood Urea Nitrogen 17 mg/dL (7-17); Calcium 9.4 mg/dL (8.4-10.2); Carbon Dioxide 29 mmol/L (22-32); Chloride 105 mmol/L (98-107); Estimated Glomerular Filt Rate > 60 mL/min (>60); Globulin 2.6 g/dL (1.7-4.1); Glucose 228 mg/dL (80-110); HEMOLYSIS < 15 (0-50); Potassium 4.8 mmol/L (3.4-5.1); Sodium 137 mmol/L (137-145); Total Protein 6.8 g/dL (6.3-8.2)
== END ==
LOC: LAB 10:37
PROVIDERS: PCP Family Medicine; Referring Provider Family Medicine; Visit Provider Family Medicine
DX: E11.69 Type 2 diabetes mellitus with other specified complication (principal); E78.5 Hyperlipidemia, unspecified; E03.9 Hypothyroidism, unspecified; E78.2 Mixed hyperlipidemia
CPT/HCPCS: 36415; 80053; 83036; 85025

== ENCOUNTER → 2023-11-29 14:46 | Outpatient (CLI) | payer MEDICARE, SELFPAY ==
--- NOTE | 2023-11-29 14:50 | DI.RAD.S_ITS ---
PROCEDURE: XR FINGER RT MIN 2V INDICATIONS: PAIN IN FINGER TECHNIQUE: AP hand, 2 views of the 3rd finger(s) acquired. COMPARISON: None. FINDINGS: Bones: No fractures or dislocations. Arthritic changes are noted with joint space narrowing, sclerosis and mild osteophyte formation. On the PA and image there are other joints showing narrowing including the DIP joints of all digits. No suspicious bony lesions. Soft tissues: No suspicious soft tissue calcifications. IMPRESSION: Osteoarthritis of the DIP joints. Dictated by: Mario Bonner M.D. on 11/29/2023 at 15:56 Approved by: Mario Bonner M.D. on 11/29/2023 at 15:58
== END ==
PROVIDERS: PCP Family Medicine; Referring Provider Dermatology; Visit Provider Dermatology
DX: M10.041 Idiopathic gout, right hand (principal); M19.041 Primary osteoarthritis, right hand
CPT/HCPCS: 73140

== ENCOUNTER → 2023-12-14 13:52 | Outpatient (CLI) | payer MEDICARE, SELFPAY ==
--- NOTE | 2023-12-25 13:19 | DIAB.MNT ---
Addendum entered by Keyla Umana 12/25/23 13:40: Date of visit: 12/14/23 Original Note: Initial Diabetes Medical Nutrition Therapy Assessment Name: Carolina Jung (Arely) Date: 12/25/23 Time: 210-325p Dx: Type II Diabetes Arely presents for initial DM visit. She is familiar to this [facility], our last visit in May of 2022. Reports wanting snack ideas, meal ideas, info on fruit intake, healthy proteins, and questions about A1c. Has increased her exercising and her instructor encourages more protein intake. States she loves carbs, craves sweets/chocolate, and q day eats a sf chocolate. Reports sometimes feeling shaky after not eating after a long period of time. No SMBG. Unclear if having any lows, though unlikely. Reports h/o ETOH intake >2 servings, feeling faint, emesis and passed out. Unclear if r/t hypoglycemia or not. Endorses poor sleep since passed. States she is a twin and has a difficulty time sleeping alone. Tearful today regarding feeling alone. Diet Recall: 830a: coffee with creamer 1-2p: proteins with 2/3-3/4c carb and veggies sn: nothing OR coffee or nuts or 1/2 banana or 1/3c yogurt 7p: half sandwich OR chicken quesadilla on two corn tortillas 730p: sf chocolate OR small piece of fruit 6-7 x 12oz water, 1-2c coffee Anthropometrics: Ht: 5' Wt: 139# Physical Activity: weight lifting 2x per week, 2x per week yoga Self-Monitoring Blood Glucose: None, does not have meter with supplies. JEFFREY messaged PCP team for rx. She is open to CGM sample. Diabetes Medications: 25mg Jardiance 10mg Glipizide BID Pertinent Labs: HgA1c: 9.9% 04/2023 11.2% 08/2023 10.9% 10/2023 Past Medical History: (Last Updated 11/12/23 @ 15:17 by Josephine Ohara MD) Acquired hypothyroidism Cerumen impaction Chronic low back pain Depression Deviated septum s/p surgery DM type 2 with diabetic dyslipidemia Generalized anxiety disorder GERD without esophagitis Hyperglycemia (~07/2019) Irritable bowel syndrome Mixed hyperlipidemia Swelling of lower extremity Venous (peripheral) insufficiency Nutrition Rx: Plate Method Nutrition Diagnosis: - Nutrition and food related knowledge deficit r/t needing additional MNT aeb pt report and hgA1c 10.9% - Self monitoring deficit r/t not having meter/supplies or CGM aeb pt report Intervention: This participant was very receptive. Provided appropriate educational handouts. Discussed the following topics: Completed intake assessment. Discussed barriers to care. HgA1c, its correlation to blood glucose numbers, and rationale for goal Importance of self-monitoring, how often, and when to check. CGM Sample education Reviewed CGM use and equipment Discussed when to check blood sugars using finger stick Reviewed high and low blood sugar signs/symptoms and treatment options Provided education for self-administration of CGM placement Educated patient on alarm settings Discussed when to replace equipment and disposal Plate Method, impact of macronutrients on blood sugar, meal timing, pairing macronutrients and spreading out carbohydrates for better blood glucose management Recommended servings for carbohydrates at meals and snacks Role of physical activity Created SMART goals for patient self-care and success. Goals: Keep a food journal Bring new meter Wear CGM x 10 days Follow-up: MARLON SOMMER follow-up in 2-3 weeks Keyla Umana RDN, [facility] Certified Diabetes Care and [employer] Structure Builder And Servicer P: [phone] Thank you for this referral
== END ==
PROVIDERS: PCP Family Medicine; Referring Provider Family Medicine
DX: E11.9 Type 2 diabetes mellitus without complications (principal); Z79.84 Long term (current) use of oral hypoglycemic drugs; Z71.3 Dietary counseling and surveillance
CPT/HCPCS: 97802

== ENCOUNTER → 2023-12-25 10:59 | Outpatient (CLI) | payer MEDICARE, SELFPAY ==
--- NOTE | 2023-12-25 16:22 | DIAB.FU ---
Follow-up Diabetes Education Assessment: Personal CGM Placement Name: Carolina Jung (Arely) Date: 12/25/23 Time: 11a-1215p Dx: Type II Diabetes Arely presents for Dm follow-up. Has kept food journal indicating most meals 45g CHO or less with protein and veggies. States that wearing a CGM helped her be more conscious of her food intake. Some days higher CHO due to her recent birthday celebrations. Reports Jardiance is $600 per month. May benefit from generic SGLT2i and/or coupon option. MCR cost reported $2000 per month. She is considering paying for medical care out of pocket and dropping insurance. Not currently on Metformin. Per EMR, Dr. Wooten d/c'd Metformin due to GI issues, primarily constipation. Arely tells me today she has been dx with IBS from GI specialist. States Metformin never made GI issues better or worse. May benefit from reinstating Metformin rx along with SGLT2i. Physical Activity: weight lifting 2x per week, 2x per week yoga Self-Monitoring Blood Glucose: None, does not have meter with supplies. JEFFREY messaged PCP team for rx. She wore Dexcom G7 x 10days. Today she presents with personal CGM FreeStyle Aung 14 day. Time in range below 70%, mostly related to elevations after each meal. FBG often in the 140-160s, above goal. TIR: 5% very high 29% high 66% in range 0% low and very low avg B mg/dl std deviation: 41 mg/dl variation: 24% Diabetes Medications: 25mg Jardiance 10mg Glipizide BID Pertinent Labs: HgA1c: 9.9% 04/2023 11.2% 08/2023 10.9% 10/2023 Past Medical History: (Last Updated 11/12/23 @ 15:17 by Josephine Ohara MD) Acquired hypothyroidism Cerumen impaction Chronic low back pain Depression Deviated septum s/p surgery DM type 2 with diabetic dyslipidemia Generalized anxiety disorder GERD without esophagitis Hyperglycemia (~07/2019) Irritable bowel syndrome Mixed hyperlipidemia Swelling of lower extremity Venous (peripheral) insufficiency Intervention: This participant was very receptive. Provided appropriate educational handouts. Discussed the following topics: Personal CGM Placement Reviewed CGM use and equipment Discussed when to check blood sugars using finger stick Provided education for self-administration of CGM placement Discussed equipment disposal Carb recommendations at meals/snacks Importance of pairing protein Medication options: potential for Metformin Created SMART goals for patient self-care and success. Goals: Keep a food journal- met Bring new meter- in progress Wear CGM x 10 days- met Call insurance about Jardiance torres and options- new If provider rx Metformin, start accordingly- new Wear personal CGM x 14 days- new Follow-up: MARLON SOMMER follow-up in 4-6 weeks Keyla Umana RDN, [facility] Certified Diabetes Care and [employer] Healer P: [phone] Thank you for this referral
== END ==
PROVIDERS: PCP Family Medicine; Referring Provider Family Medicine
DX: E11.9 Type 2 diabetes mellitus without complications (principal); Z79.84 Long term (current) use of oral hypoglycemic drugs; Z71.3 Dietary counseling and surveillance
CPT/HCPCS: 95249

== ENCOUNTER → 2024-01-12 09:47 | Outpatient (CLI) | payer MEDICARE, SELFPAY ==
[2024-01-12 10:30] LABS: Hemoglobin A1C% w Est Avg Glu 7.7 % (4.0-6.0)
[2024-01-12 11:15] LABS: TSH w/ Reflex to FT4 2.14 uIU/mL (0.47-4.68)
== END ==
LOC: LAB 09:47
PROVIDERS: PCP Family Medicine; Referring Provider Family Medicine; Visit Provider Family Medicine
DX: E11.69 Type 2 diabetes mellitus with other specified complication (principal); E03.9 Hypothyroidism, unspecified; E78.5 Hyperlipidemia, unspecified
CPT/HCPCS: 36415; 83036; 84443

== ENCOUNTER → 2024-04-15 11:18 | Outpatient (CLI) | payer MEDICARE, SELFPAY ==
[2024-04-15 11:56] LABS: Hemoglobin A1C% w Est Avg Glu 7.7 % (4.0-6.0)
== END ==
PROVIDERS: PCP Family Medicine; Referring Provider Family Medicine; Visit Provider Family Medicine
DX: E11.69 Type 2 diabetes mellitus with other specified complication (principal); E78.5 Hyperlipidemia, unspecified
CPT/HCPCS: 36415; 83036

== ENCOUNTER → 2024-05-20 06:56 | Outpatient (CLI) | payer MEDICARE, SELFPAY ==
--- NOTE | 2024-05-20 06:57 | DI.ECHO.S_ITS ---
[facility] : : [address] : : [place] : : [id number] : : Phone: [phone] Echocardiogram Report + + :Name: GUY SALDAÑA Study Date: 05/20/2024 Height: 60 in : :Hospital ReadingLocation: Weight: 138 lb : : Gender: Female BSA: 1.6 m2 : :: 1950 Age: 73 yrs BP: 132/77 mmHg: :Reason For Study: SWELLING OF LOWER EXTREMITY : :Ordering Physician: DOMINGA, : :MEDHAT Davis Performed By: Vaishnavi lAmonte : :Referring: MEDHAT ORR : + + Interpretation Summary 1. The left ventricular contractility is normal. Estimate ejection fraction is greater than 55% with no segmental wall motion abnormalities. No LVH. Unable to comment on diastolic function. 2. The right ventricular contractility is normal. 3. All cardiac chambers are normal size. 4. Trace to mild aortic insufficiency. 5. No obvious intracardiac shunts. 6. No obvious intracardiac masses nor thrombi. 7. No hemodynamically significant pericardial effusion. 8. Normal right-sided filling pressures. Conclusion: Normal biventricular systolic function with no significant valvular abnormalities. Procedure: A two-dimensional transthoracic echocardiogram with color flow and Doppler was performed. The study quality was technically adequate. There is no prior echocardiogram noted for this patient. The patient was in sinus rhythm with heart rates between 68-78 bpm during the exam. Left Ventricle: The left ventricle is normal in size and wall thickness. The ejection fraction is estimated to be 55-60%. Right Ventricle: The right ventricle is normal size. The right ventricular systolic function is normal. Atria: The left atrial size is normal. Right atrial size is normal. There is no Doppler evidence for an interatrial shunt. Mitral Valve: The mitral valve leaflets appear borderline thickened, but open well. There is mild mitral annular calcification. There is trace mitral regurgitation. Aortic Valve: The aortic valve is trileaflet. The aortic valve opens well. There is no aortic valve stenosis. There is mild aortic regurgitation. Tricuspid Valve: The tricuspid valve leaflets are thin and pliable. There is trace tricuspid regurgitation. The right ventricular systolic pressure is estimated to be at least 25 mmHg based on an estimated right atrial pressure of 8 mm Hg. Pulmonic Valve: The pulmonic valve leaflets are thin and pliable; valve motion is normal. There is trace pulmonic regurgitation. Great Vessels: The aortic root is normal size. The dimensions of the ascending aorta are normal. The IVC is of normal diameter and collapses less than 50% with a sniff. This suggests a right atrial pressure of 8 mm Hg. Pericardium/ Pleura There is no pericardial effusion. There is no pleural effusion. MMode/2D Measurements & Calculations LVIDd: 4.1 cm LVOT diam: 1.9 cm LVIDs: 2.6 cm Ao root diam: 2.6 cm FS: 35.6 % asc Aorta Diam: 3.0 cm IVSd: 0.79 cm Ao Arch Diam (Prox Trans): 2.7 cm LVPWd: 0.85 cm LV alvarado. diameter/BSA (cm/m^2): 2.6 LV sys. diameter/BSA (cm/m^2): 1.6 LA A2 area: 13.7 cm2 RA long axis: 4.2 cm LA A4 area: 13.1 cm2 RA area: 12.7 cm2 LA length (vol): 4.6 cm RA vol: 32.4 ml LA vol: 33.3 ml RA : 20.3 ml/m2 LA vol index: 20.9 ml/m2 IVC diam: 1.3 cm RVD1 (basal): 3.0 cm RVD2 (mid): 2.5 cm TAPSE: 1.2 cm Doppler Measurements & Calculations Ao V2 max: 156.0 cm/sec LVOT Max Tacho: 111.0 cm/sec Ao V2 mean: 109.0 cm/sec LV V1 max P.9 mmHg Ao max P.7 mmHg LV V1 VTI: 23.3 cm Ao mean P.3 mmHg MAUREEN(I,D): 1.9 cm2 Ao V2 VTI: 35.3 cm MAUREEN(V,D): 2.1 cm2 sev ratio: 0.66 MAUREEN indexed to BSA (cm^2/m^2): 1.2 MV E max tacho: 73.0 cm/sec TR max tacho: 205.4 cm/sec MV A max tacho: 102.6 cm/sec TR max P.9 mmHg MV E/A: 0.71 PA V2 max: 102.6 cm/sec Med Peak E' Tacho: 8.9 cm/sec PA V2 mean: 69.8 cm/sec E/E' med: 8.2 PA mean P.2 mmHg Lat Peak E' Tacho: 9.4 cm/sec PA pr(Accel): 31.0 mmHg E/E' lat: 7.8 E/e' average: 8.0 MV dec time: 0.25 sec SV(LVOT): 68.4 ml Reading Physician:
[2024-05-20 08:19] LABS: Add Manual Diff / Slide Review NO; Basophils Absolute Auto 0 /uL (0-100); Basophils Percent Auto 0.6 % (0-2); Eosinophils Absolute Auto 200 /uL (0-450); Eosinophils Percent Auto 3.5 % (2-4); Hematocrit 40.5 % (36-46); Hemoglobin 13.1 g/dL (12.0-16.0); Lymphocytes Absolute Auto 2300 /uL (1100-4500); Lymphocytes Percent Auto 33.7 % (25-40); Mean Corpuscular HGB Conc 32.4 % (30-36); Mean Corpuscular Hemoglobin 26.7 PG (26-34); Mean Corpuscular Volume 82.4 fL (80-100); Monocytes Absolute Auto 500 /uL (0-900); Monocytes Percent Auto 6.8 % (3-14); Neutrophils Absolute Auto 3800 /uL (1500-7000); Neutrophils Percent Auto 55.4 % (50-75); Platelet Count 211 X10^3/uL (150-400); Red Blood Cell Count 4.92 X10^6/uL (4.0-5.2); Red Cell Distribution Width 16.7 % (11.6-14.8); White Blood Cell Count 6.8 X10^3/uL (4.5-11.0)
[2024-05-20 09:22] LABS: HEMOLYSIS < 15 (0-50); Iron 56 ug/dL (37-170)
[2024-05-20 09:27] LABS: Alanine Aminotransferase 23 IU/L (<35); Albumin 4.3 g/dL (3.5-5.0); Albumin Globulin Ratio 1.7 (1.0-2.8); Alkaline Phosphatase 85 U/L (38-126); Aspartate Aminotransferase 24 IU/L (14-36); BUN Creatinine Ratio 24.7 (6-22); Bilirubin Total 0.3 mg/dL (0.2-1.3); Blood Urea Nitrogen 18 mg/dL (7-17); Calcium 9.2 mg/dL (8.4-10.2); Carbon Dioxide 28 mmol/L (22-32); Chloride 105 mmol/L (98-107); Cholesterol 143 mg/dL (140-199); Estimated Glomerular Filt Rate > 60 mL/min (>60); Globulin 2.6 g/dL (1.7-4.1); Glucose 152 mg/dL (80-110); HDL Cholesterol 55 mg/dL (40-60); HEMOLYSIS < 15 (0-50); LDL Cholesterol Calculated 62 mg/dL (<100); Magnesium 2.2 mg/dL (1.6-2.3); Potassium 4.2 mmol/L (3.4-5.1); Sodium 140 mmol/L (137-145); Total Protein 6.9 g/dL (6.3-8.2); Triglycerides 131 mg/dL (35-150)
[2024-05-20 09:35] LABS: Percent Iron Saturation 16 % (15-50); Total Iron Binding Capacity 360 ug/dL (265-497); Transferrin 327 mg/dL (206-381)
[2024-05-20 09:54] LABS: TSH w/ Reflex to FT4 2.78 uIU/mL (0.47-4.68)
[2024-05-20 10:01] LABS: Ferritin 7 ng/mL (11-264)
== END ==
PROVIDERS: PCP Family Medicine; Referring Provider Family Medicine; Visit Provider Family Medicine
DX: I34.81 Nonrheumatic mitral (valve) annulus calcification (principal); R25.2 Cramp and spasm; I35.1 Nonrheumatic aortic (valve) insufficiency; M79.89 Other specified soft tissue disorders; E11.69 Type 2 diabetes mellitus with other specified complication; E03.9 Hypothyroidism, unspecified; E78.2 Mixed hyperlipidemia
CPT/HCPCS: 36415; 80053; 80061; 82728; 83540; 83550; 83735; 84443; 85025; 93306

== ENCOUNTER → 2025-02-09 10:37 | Outpatient (CLI) | payer MEDICARE, SELFPAY ==
[2025-02-09 11:47] LABS: Add Manual Diff / Slide Review NO; Hematocrit 44.9 % (36-46); Hemoglobin 14.7 g/dL (12.0-16.0); Lymphocytes Absolute Auto 1900 /uL (1100-4500); Mean Corpuscular HGB Conc 32.7 % (30-36); Mean Corpuscular Hemoglobin 27.5 PG (26-34); Mean Corpuscular Volume 83.9 fL (80-100); Platelet Count 205 X10^3/uL (150-400)
[2025-02-09 11:55] LABS: Alanine Aminotransferase 20 IU/L (<35); Albumin 4.8 g/dL (3.5-5.0); Albumin Globulin Ratio 1.5 (1.0-2.8); Alkaline Phosphatase 80 U/L (38-126); Blood Urea Nitrogen 18 mg/dL (7-17); Calcium 10.0 mg/dL (8.4-10.2); Carbon Dioxide 25 mmol/L (22-32); Chloride 105 mmol/L (98-107); Cholesterol 177 mg/dL (140-199); Estimated Glomerular Filt Rate > 60 mL/min (>60); Globulin 3.3 g/dL (1.7-4.1); Glucose 106 mg/dL (70-99); HDL Cholesterol 80 mg/dL (40-60); HEMOLYSIS 24 (0-50); Magnesium 2.3 mg/dL (1.6-2.3); Potassium 4.4 mmol/L (3.4-5.1); Sodium 141 mmol/L (137-145); Total Protein 8.1 g/dL (6.3-8.2); Triglycerides 137 mg/dL (35-150)
[2025-02-09 11:58] LABS: Microalbumi Creatinin Ratio Ur 12.0 ug/mg CR (<30)
[2025-02-09 12:13] LABS: Hemoglobin A1C% w Est Avg Glu 7.5 % (4.0-6.0)
[2025-02-09 12:28] LABS: Ferritin 17 ng/mL (11-264); TSH w/ Reflex to FT4 2.47 uIU/mL (0.47-4.68)
== END ==
PROVIDERS: PCP Family Medicine; Referring Provider Family Medicine; Visit Provider Family Medicine
DX: E03.9 Hypothyroidism, unspecified (principal); E61.1 Iron deficiency; N89.8 Other specified noninflammatory disorders of vagina; M25.551 Pain in right hip
CPT/HCPCS: 36415; 80053; 80061; 82043; 82570; 82728; 83036; 83735; 84443; 85025

== ENCOUNTER 2025-02-27 11:42 | Emergency (ER) | payer MEDICARE, SELFPAY ==
[2025-02-27 11:47] VITALS: BP 152/66; PULSE 84; RESP 18; TEMP 36.3; O2SAT 96; BMI 27.3
[2025-02-27 12:08] LABS: Add Manual Diff / Slide Review NO; Hematocrit 40.7 % (36-46); Hemoglobin 13.4 g/dL (12.0-16.0); Lymphocytes Absolute Auto 1900 /uL (1100-4500); Mean Corpuscular HGB Conc 32.9 % (30-36); Mean Corpuscular Hemoglobin 27.7 PG (26-34); Mean Corpuscular Volume 84.2 fL (80-100); Platelet Count 206 X10^3/uL (150-400)
--- NOTE | 2025-02-27 12:19 | ED.EXTPRO ---
HPI - Extremity Problem <Ivy Faria PA-C - Last Filed: 02/27/25 19:07> General Chief complaint: Extremity Problem,Nontraumatic Stated complaint: feet cramping, since yesterday Time Seen by Provider: 02/27/25 11:47 Source: patient Mode of arrival: Wheelchair History of Present Illness HPI Narrative: Ms. Jung is a pleasant 74-year-old female with a past medical history of type 2 diabetes, acquired hypothyroidism, hyperlipidemia, iron deficiency anemia who presents to the emergency department for bilateral feet cramping since yesterday. Patient denies any inciting injury. She has seen her PCP in the past, 12/23/24 for lower leg cramps. She states that she is having pain in both feet on the bottom and top, worse on the left foot. Yesterday she had a massage, use warm compresses, took naproxen and increased water which improved her pain however today while she was at yoga the cramps returned which prompted her to come to the ER. She denies numbness tingling weakness or injury. No swelling or color change. No fevers, chills, nausea, vomiting or flu-like symptoms. Related Data Home Medications ?Medication ?Instructions ?Recorded ?Confirmed esomeprazole magnesium 20 mg 20 mg PO DAILY 02/24/19 02/27/25 capsule,delayed release (Nexium 24HR) Previous Rx's ?Medication ?Instructions ?Recorded FreeStyle Aung 14 Day Sensor #1 ea 12/17/23 (flash glucose sensor) levothyroxine 50 mcg tablet 50 mcg PO DAILY #90 tabs 02/06/24 empagliflozin 25 mg tablet 25 mg PO QAM #30 tabs 03/17/24 (Jardiance) hydrocortisone 1 % topical cream 1 applic topical TID PRN itching 12/23/24 #28.4 grams metformin 500 mg tablet,extended 500 mg PO DAILY #30 tabs 12/23/24 release 24 hr trazodone 50 mg tablet 25 mg (1/2 x 50 mg) PO BEDTIME PRN 12/23/24 sleep #30 tabs rosuvastatin 10 mg tablet 10 mg PO DAILY #60 tabs 12/24/24 glipizide 10 mg tablet, extended 10 mg PO BID #180 tabs 12/30/24 release 24 hr methocarbamol 500 mg tablet 500 mg PO BEDTIME #10 tabs 02/27/25 Allergies Allergy/AdvReac Type Severity Reaction Status Date / Time No Known Drug Allergies Allergy Verified 02/27/25 11:47 Review of Systems <Ivy Faria PA-C - Last Filed: 02/27/25 19:07> Review of Systems ROS Unobtainable: All systems reviewed & are unremarkable except as noted in HPI and below Patient History <Ivy Faria PA-C - Last Filed: 02/27/25 19:07> Medical History Cerumen impaction Swelling of lower extremity Depression Venous (peripheral) insufficiency Chronic low back pain GERD without esophagitis Generalized anxiety disorder DM type 2 with diabetic dyslipidemia Hyperglycemia (~07/2019) Irritable bowel syndrome Deviated septum Mixed hyperlipidemia Acquired hypothyroidism Surgical History S/P sinus surgery S/P appendectomy S/P hysterectomy tobacco type: cigarettes alcohol intake frequency: a few times a month Alcohol type: wine Exam <Ivy Faria PA-C - Last Filed: 02/27/25 19:07> Narrative Exam Narrative: GENERAL: 74 year old patient appears stated age. Well-developed patient, in no acute distress. HEAD: Atraumatic. Normocephalic. NECK: Trachea midline. Cervical ROM intact. CARDIOVASCULAR: Regular rate RESPIRATORY: ?Nonlabored respirations. ?Speaking in clear, full sentences.? EXTREMITIES: No LE edema. 2+ bilateral DP and PT pulses, brisk cap refill in the toes. No erythema or increased warmth. No focal bony tenderness. Sensation intact to light touch in bilateral toes. No calf swelling or tenderness. No active spasms. NEURO: AOx3. ?Clear speech. ?Moves all 4 extremities appropriately. SKIN: No rash or erythema of visible areas Initial Vital Signs Initial Vital Signs: Vital Signs Temperature 97.4 F L 02/27/25 11:47 Pulse Rate 84 02/27/25 11:47 Respiratory Rate 18 02/27/25 11:47 Blood Pressure 152/66 H 02/27/25 11:47 Pulse Oximetry 96 02/27/25 11:47 Oxygen Delivery Method Room Air 02/27/25 11:47 <Jolie Zuñiga MD - Last Filed: 03/02/25 15:12> Initial Vital Signs Initial Vital Signs: Vital Signs Temperature 97.4 F L 02/27/25 11:47 Pulse Rate 84 02/27/25 11:47 Respiratory Rate 18 02/27/25 11:47 Blood Pressure 152/66 H 02/27/25 11:47 Pulse Oximetry 96 02/27/25 11:47 Oxygen Delivery Method Room Air 02/27/25 11:47 Course <Ivy Faria PA-C - Last Filed: 02/27/25 19:07> Orders Ordered: Discontinued Medications Sodium Chloride (Normal Saline 0.9%) 500 mls @ 500 mls/hr IV BOLUS ONE Stop: 02/27/25 13:33 Last Infusion: 02/27/25 13:29 Dose: Infused Documented By: Admin: 02/27/25 12:46 Dose: 500 mls/hr Documented By: RB Ketorolac Tromethamine (Ketorolac 30 Mg/Ml Vial) 15 mg IV NOW ONE Stop: 02/27/25 12:35 Last Admin: 02/27/25 12:46 Dose: 15 mg Documented By: RB Vital Signs Vital signs: Vital Signs - 8 hr 02/27/25 11:47 Temperature 97.4 F L Pulse Rate 84 Respiratory Rate 18 Blood Pressure 152/66 H Pulse Oximetry 96 Oxygen Delivery Method Room Air <Jolie Zuñiga MD - Last Filed: 03/02/25 15:12> Orders Ordered: Discontinued Medications Sodium Chloride (Normal Saline 0.9%) 500 mls @ 500 mls/hr IV BOLUS ONE Stop: 02/27/25 13:33 Last Infusion: 02/27/25 13:29 Dose: Infused Documented By: Admin: 02/27/25 12:46 Dose: 500 mls/hr Documented By: RB Ketorolac Tromethamine (Ketorolac 30 Mg/Ml Vial) 15 mg IV NOW ONE Stop: 02/27/25 12:35 Last Admin: 02/27/25 12:46 Dose: 15 mg Documented By: RB Vital Signs Vital signs: Vital Signs - 8 hr 02/27/25 11:47 Temperature 97.4 F L Pulse Rate 84 Respiratory Rate 18 Blood Pressure 152/66 H Pulse Oximetry 96 Oxygen Delivery Method Room Air MDM - Extremity (Nontraumatic) <Ivy Faria PA-C - Last Filed: 02/27/25 19:07> Medical Records Attestation: I reviewed the patient's medical records. Lab Data 02/27/25 11:55 02/27/25 11:55 Labs: Lab Results 02/27/25 Range/Units 11:55 WBC 7.1 (4.5-11.0) X10^3/uL RBC 4.83 (4.0-5.2) X10^6/uL Hgb 13.4 (12.0-16.0) g/dL Hct 40.7 (36-46) % MCV 84.2 (80-100) fL MCH 27.7 (26-34) PG MCHC 32.9 (30-36) % RDW 16.1 H (11.6-14.8) % Plt Count 206 (150-400) X10^3/uL Neut % (Auto) 66.4 (50-75) % Lymph % (Auto) 26.1 (25-40) % Finney % (Auto) 4.5 (3-14) % Eos % (Auto) 2.2 (2-4) % Baso % (Auto) 0.8 (0-2) % Neut # (Auto) 4700 (5683-5757) /uL Lymph # (Auto) 1900 (4269-6385) /uL Finney # (Auto) 300 (0-900) /uL Eos # (Auto) 200 (0-450) /uL Baso # (Auto) 100 (0-100) /uL Sodium 140 (137-145) mmol/L Potassium 4.3 (3.4-5.1) mmol/L Chloride 103 (98-107) mmol/L Carbon Dioxide 28 (22-32) mmol/L BUN 19 H (7-17) mg/dL Creatinine 0.65 (0.52-1.04) mg/dL Estimated GFR > 60 (>60) mL/min BUN/Creatinine Ratio 29.2 H (6-22) Glucose 154 H (70-99) mg/dL Calcium 9.5 (8.4-10.2) mg/dL Phosphorus 3.9 (2.8-4.1) mg/dL Magnesium 2.2 (1.6-2.3) mg/dL Total Bilirubin 0.2 (0.2-1.3) mg/dL AST 24 (14-36) IU/L ALT 18 (<35) IU/L Alkaline Phosphatase 69 (38-126) U/L Total Protein 7.7 (6.3-8.2) g/dL Albumin 4.5 (3.5-5.0) g/dL Globulin 3.2 (1.7-4.1) g/dL Albumin/Globulin Ratio 1.4 (1.0-2.8) [facility] Narrative Medical decision making narrative: 74-year-old female with a past medical history of type 2 diabetes, acquired hypothyroidism, hyperlipidemia, iron deficiency anemia who presents to the emergency department for bilateral feet cramping since yesterday. Differential diagnosis includes but is not limited to muscle spasm, electrolyte derangement, dehydration, plantar fasciitis, arthritis, etc. On exam patient is in no acute distress, nontoxic appearing, vital signs appropriate. She was evaluated by the attending ER physician in triage, CBC, CMP, magnesium, phosphorus ordered. On my physical exam the patient has strong DP and PT pulses bilaterally, no leg swelling color change or decreased sensation. She is describing cramping pain on the top and bottom of both feet worse on the left foot. She is did see her PCP 12/23/2024 for leg cramps. Labs overall reassuring with normal WBC count 7.1, normal sodium 140, potassium 4.3, magnesium 2.2, phosphorus 3.9. She does have slight elevation in her BUN 19 and glucose 154. We will treat with gentle, 500 mL IV fluids 15 mg Toradol, muscle relaxers for home. We did discuss the risks of muscle relaxers and the drowsy side effects. Patient did well with fluids and Toradol, she is ambulatory and stable for discharge home, discussed rice therapy, PCP follow up, ER return precautions. She verbalized understanding all information agreeable to plan. She is stable for discharge home. <Jolie Zuñiga MD - Last Filed: 03/02/25 15:12> Lab Data Labs: Lab Results 02/27/25 Range/Units 11:55 WBC 7.1 (4.5-11.0) X10^3/uL RBC 4.83 (4.0-5.2) X10^6/uL Hgb 13.4 (12.0-16.0) g/dL Hct 40.7 (36-46) % MCV 84.2 (80-100) fL MCH 27.7 (26-34) PG MCHC 32.9 (30-36) % RDW 16.1 H (11.6-14.8) % Plt Count 206 (150-400) X10^3/uL Neut % (Auto) 66.4 (50-75) % Lymph % (Auto) 26.1 (25-40) % Finney % (Auto) 4.5 (3-14) % Eos % (Auto) 2.2 (2-4) % Baso % (Auto) 0.8 (0-2) % Neut # (Auto) 4700 (4453-1663) /uL Lymph # (Auto) 1900 (0667-1700) /uL Finney # (Auto) 300 (0-900) /uL Eos # (Auto) 200 (0-450) /uL Baso # (Auto) 100 (0-100) /uL Sodium 140 (137-145) mmol/L Potassium 4.3 (3.4-5.1) mmol/L Chloride 103 (98-107) mmol/L Carbon Dioxide 28 (22-32) mmol/L BUN 19 H (7-17) mg/dL Creatinine 0.65 (0.52-1.04) mg/dL Estimated GFR > 60 (>60) mL/min BUN/Creatinine Ratio 29.2 H (6-22) Glucose 154 H (70-99) mg/dL Calcium 9.5 (8.4-10.2) mg/dL Phosphorus 3.9 (2.8-4.1) mg/dL Magnesium 2.2 (1.6-2.3) mg/dL Total Bilirubin 0.2 (0.2-1.3) mg/dL AST 24 (14-36) IU/L ALT 18 (<35) IU/L Alkaline Phosphatase 69 (38-126) U/L Total Protein 7.7 (6.3-8.2) g/dL Albumin 4.5 (3.5-5.0) g/dL Globulin 3.2 (1.7-4.1) g/dL Albumin/Globulin Ratio 1.4 (1.0-2.8) Discharge Plan Departure Patient Disposition: Home Clinical Impression: Cramping of feet Instructions: DI for Muscle Spasm Activity Restrictions/Additional Instructions: Dear Ms. Jung, Thank you for coming to the emergency department. Today you were evaluated for feet pain/cramping. Your lab work was overall reassuring and revealed normal electrolytes. Your labs did reveal minor dehydration and you were treated with IV fluids and IV anti-inflammatory pain medications. I have prescribed you a muscle relaxer that I would like you to take at night to help with cramping. Please use compression socks, increase hydration, and follow up with your primary care doctor for further management. You can take ibuprofen or naproxen and Tylenol for pain as well. Please be aware that methocarbamol also known as Robaxin as a muscle relaxer and this will make you drowsy. Please only take it at night when you will not be walking around or operating heavy machinery. Please do not drink alcohol while taking this medication. Please use RICE therapy for your pain in addition to ibuprofen/acetaminophen. Rest the painful area. Ice the area of pain/swelling for at least 15 minutes, 4x a day. Compress the area of swelling using a brace, wrap, or splint if applied. Elevate the painful or swollen extremity by supporting it above the level of the heart with pillows when sitting or laying. Please follow up with your primary care doctor within the next 2-3 days for ER follow-up. (If you do not have a PCP you can call [phone]. ?to schedule an appointment with an [facility] Primary Care Provider) IF YOU DEVELOP ANY NEW OR WORSENING SYMPTOMS, RETURN TO THE ER! Please read the attached instructions, they highlight more specific treatments and interventions for you at home. Thank you for letting me participate in your care, Ivy Faria PA-C Prescriptions: New methocarbamol 500 mg tablet 500 mg PO BEDTIME Qty: 10 0RF No Action metformin 500 mg tablet extended release 24 hr 500 mg PO DAILY Qty: 30 3RF trazodone 50 mg tablet 25 mg PO BEDTIME PRN (Reason: sleep) Qty: 30 2RF hydrocortisone 1 % cream 1 applic topical TID PRN (Reason: itching) Qty: 28.4 1RF esomeprazole magnesium [Nexium 24HR] 20 mg capsule,delayed release(DR/EC) 20 mg PO DAILY (DME) Free2Duche Aung 14 Day Sensor Kit See Rx Instructions .Route Qty: 1 11RF Rx Instructions: As directed 1-2 times daily for glucose monitoring levothyroxine 50 mcg tablet 50 mcg PO DAILY Qty: 90 3RF Jardiance 25 mg tablet 25 mg PO QAM Qty: 30 2RF rosuvastatin 10 mg tablet 10 mg PO DAILY Qty: 60 0RF Rx Instructions: PT NEEDS TO SEE PCP BEFORE NEXT RENEWAL 12/24/24 glipizide 10 mg tablet extended release 24hr 10 mg PO BID Qty: 180 3RF Referrals: Josephine Ohara MD [Primary Care Provider, Family Practice] Stand Alone Forms: Patient Portal/API ED Sign-out <Jolie Zuñiga MD - Last Filed: 03/02/25 15:12> Cosign ED Attending Cosignature Attestation: I was immediately available in the department for consultation throughout this patient's visit. Jolie Zuñiga MD
[2025-02-27 12:20] LABS: Alanine Aminotransferase 18 IU/L (<35); Albumin 4.5 g/dL (3.5-5.0); Albumin Globulin Ratio 1.4 (1.0-2.8); Alkaline Phosphatase 69 U/L (38-126); Blood Urea Nitrogen 19 mg/dL (7-17); Calcium 9.5 mg/dL (8.4-10.2); Carbon Dioxide 28 mmol/L (22-32); Chloride 103 mmol/L (98-107); Estimated Glomerular Filt Rate > 60 mL/min (>60); Globulin 3.2 g/dL (1.7-4.1); Glucose 154 mg/dL (70-99); HEMOLYSIS < 15 (0-50); Magnesium 2.2 mg/dL (1.6-2.3); Potassium 4.3 mmol/L (3.4-5.1); Sodium 140 mmol/L (137-145); Total Protein 7.7 g/dL (6.3-8.2)
[2025-02-27 12:27] LABS: Phosphorous 3.9 mg/dL (2.8-4.1)
[2025-02-27] MEDS: SODIUM CHLORIDE 0.9% 500 ML IV (12:46)
[2025-02-27] MEDS: KETOROLAC 30 MG/ML VIAL 15 MG IV (12:46)
== END 2025-02-27 13:35 | disposition home or self-care (01) ==
PROVIDERS: Emergency Medicine; Emergency Provider Physician Assistant; PCP Family Medicine
DX: R25.2 Cramp and spasm (principal)
CPT/HCPCS: 36415; 77080; 80053; 83735; 84100; 85025; 96374; 99284; J1885; J7040